=== PATIENT | female | born 1995 | race Caucasian/White ===

== ENCOUNTER 2020-01-17 23:10 | Emergency (ER) | payer OTHER ==
[~2020-01-17] VITALS: Ht 165.1 cm; Wt 113.6 kg
[2020-01-18 00:39] LABS: BASO # 0.1 10^3/uL (0.0-0.2); BASO % 0.5 % (0.0-1.0); EOS # 0.1 10^3/uL (0.0-0.5); EOS % 0.5 % (0.0-3.0); HEMATOCRIT 37.5 % (36.0-47.0); HEMOGLOBIN 11.9 g/dl (12.0-15.5); LYMPH # 1.6 10^3/uL (1.5-5.0); LYMPH % 14.1 % (24.0-44.0); MEAN CORPUSCULAR HGB CONC 31.7 g/dl (32.0-36.5); MEAN CORPUSCULAR VOLUME 88.2 fl (80.0-96.0); MONO # 0.7 10^3/uL (0.0-0.8); MONO % 5.9 % (0.0-5.0); NEUTROPHILS # 8.9 10^3/uL (1.5-8.5); NEUTROPHILS % 78.6 % (36.0-66.0); PLATELET COUNT, AUTOMATED 259 10^3/uL (150-450); RED BLOOD COUNT 4.25 10^6/uL (4.00-5.40); WHITE BLOOD COUNT 11.3 10^3/uL (4.0-10.0)
--- NOTE | 2020-01-18 01:58 | REPVR ---
PROCEDURE INFORMATION: Exam: US First Trimester, Transabdominal Exam date and time: 01/18/2020 1:14 AM Age: 24 years old Clinical indication: Lmp or gestational age (in weeks): 7; Antepartum complications; ; Patient HX: Confirmed iup at Dr suarez. Recently passed a large clot and has heavy bleeding. Roby from sono at [facility] 09/05/2020; Additional info: Confirmed at Dr. Suarez, vaginal bleeding TECHNIQUE: Imaging protocol: Real-time transabdominal obstetrical ultrasound of the maternal pelvis and a first trimester , less than 14 weeks 0 days, with image documentation. COMPARISON: No relevant prior studies available. FINDINGS: MATERNAL: Uterus: No intrauterine gestational sac is seen. Uterus is anteverted measuring 10.7 x 4.1 x 5.2 cm. Mildly thickened endometrium measuring 11.7 mm. No hypervascularity is seen. No obvious retained products of conception are seen. Cervix: Unremarkable. Right adnexa: Right ovary measures 2.8 x 1.3 x 2.5 cm. Normal vascular flow is seen. No evidence of torsion, mass, or cyst. Left adnexa: Left ovary is unremarkable measuring 3.1 x 1.6 x 2.4 cm. Normal vascular flow is seen. No evidence of torsion, mass, or cyst. Intraperitoneal space: No intraperitoneal free fluid. IMPRESSION: No intrauterine gestational sac is seen. Uterus is anteverted measuring 10.7 x 4.1 x 5.2 cm. Mildly thickened endometrium measuring 11.7 mm. No hypervascularity is seen. No obvious retained products of conception are seen. Electronically signed by: Christie Moser On 01/18/2020 01:57:58 AM
[2020-01-18 02:41] VITALS: BP 132/79
== END 2020-01-18 02:43 | disposition home or self-care (01) ==
LOC: M ED 23:10
DX: O20.0 Threatened abortion (principal); Z3A.00 Weeks of gestation of pregnancy not specified

== ENCOUNTER → 2020-01-31 | Outpatient (REF) | payer OTHER | LOC: M LAB REF 16:18 | PROVIDERS: ATTEND Obstetrics & Gynecology | DX: O02.1 Missed abortion (principal) ==

== ENCOUNTER → 2020-06-06 | Outpatient (REF) | payer OTHER ==
[2020-06-06 17:26] LABS: HEMATOCRIT 37.2 % (36.0-47.0); MEAN CORPUSCULAR HEMOGLOBIN 28.7 pg (27.0-33.0); MEAN CORPUSCULAR HGB CONC 32.3 g/dl (32.0-36.5); PLATELET COUNT, AUTOMATED 287 10^3/uL (150-450); RED BLOOD COUNT 4.18 10^6/uL (4.00-5.40); WHITE BLOOD COUNT 8.3 10^3/uL (4.0-10.0)
[2020-06-06 18:20] LABS: HEPATITIS C VIRUS ABY INDEX < 0.0 INDEX (<0.8); HIV 1&2 SCREEN CENTAUR NEGATIVE (NEGATIVE)
[2020-06-06 18:58] LABS: CHLAMYDIA DNA AMPLIFICATION NEGATIVE (NEGATIVE); GC DNA AMPLIFICATION NEGATIVE (NEGATIVE)
== END ==
LOC: M PLALAB 14:03
PROVIDERS: ATTEND Advanced Practice Midwife
DX: Z3A.08 8 weeks gestation of pregnancy (principal)

== ENCOUNTER 2020-06-15 11:38 | Emergency (ER) | payer OTHER ==
[~2020-06-15] VITALS: Ht 149.9 cm; Wt 58.6 kg
[~2020-06-15 11:38] MED LIST: MULTTAB20 PO
[2020-06-15 12:51] LABS: BASO # 0.1 10^3/uL (0.0-0.2); BASO % 0.7 % (0.0-1.0); EOS # 0.1 10^3/uL (0.0-0.5); HEMATOCRIT 35.2 % (36.0-47.0); HEMOGLOBIN 11.4 g/dl (12.0-15.5); LYMPH # 1.7 10^3/uL (1.5-5.0); LYMPH % 20.6 % (24.0-44.0); MEAN CORPUSCULAR HEMOGLOBIN 29.1 pg (27.0-33.0); MEAN CORPUSCULAR HGB CONC 32.4 g/dl (32.0-36.5); MEAN CORPUSCULAR VOLUME 89.8 fl (80.0-96.0); MONO # 0.4 10^3/uL (0.0-0.8); MONO % 5.1 % (2.0-8.0); NEUTROPHILS # 5.8 10^3/uL (1.5-8.5); NEUTROPHILS % 71.9 % (36.0-66.0); PLATELET COUNT, AUTOMATED 261 10^3/uL (150-450); RED BLOOD COUNT 3.92 10^6/uL (4.00-5.40)
--- NOTE | 2020-06-15 13:13 | REP ---
INDICATION: VAGINAL BLEEDING. COMPARISON: None. TECHNIQUE: Multiple sonographic images of the gravid uterus. FINDINGS: There is an intrauterine gestational sac with a pole. The heart rate is 153 beats per minute. The pole crown-rump length is 3.7 cm. This corresponds to a gestational age of 10 weeks 4 days with an CASEY of 01/07/2021. There is a subchorionic hematoma along the right margin of the gestational sac measuring 2.7 x 1.0 x 3.9 cm. Limited images of the right and left ovaries are unremarkable. IMPRESSION: There is a viable intrauterine gestation as described. There is a subchorionic hematoma lung the right lateral margin of the gestational sac. <Electronically signed by Rikki Jose > 06/15/20 [id number]
[2020-06-15 13:43] LABS: BLOOD UREA NITROGEN 4 MG/DL (7-18); CALCIUM LEVEL 9.1 MG/DL (8.5-10.1); CARBON DIOXIDE LEVEL 24 MEQ/L (21-32); CHLORIDE LEVEL 107 MEQ/L (98-107); CREATININE FOR GFR 0.49 MG/DL (0.55-1.30); GLOMERULAR FILTRATION RATE > 60.0 (>60); GLUCOSE, FASTING 77 MG/DL (70-100); HCG, SERUM QUANTITATIVE 99295 MIU/ML; POTASSIUM SERUM 4.6 MEQ/L (3.5-5.1); SODIUM LEVEL 137 MEQ/L (136-145)
[2020-06-15 14:57] VITALS: BP 118/67
== END 2020-06-15 15:02 | disposition home or self-care (01) ==
LOC: M ED 11:38
DX: O20.8 Other hemorrhage in early pregnancy (principal); Z32.01 Encounter for pregnancy test, result positive; O26.891 Other specified pregnancy related conditions, first trimester; Z3A.10 10 weeks gestation of pregnancy; Z87.59 Personal history of other complications of pregnancy, childbirth and the puerperium

== ENCOUNTER → 2020-07-04 | Outpatient (REF) | payer OTHER | LOC: M SFHCWAGY 16:56 | PROVIDERS: ATTEND Advanced Practice Midwife | DX: Z12.4 Encounter for screening for malignant neoplasm of cervix (principal) ==

== ENCOUNTER 2020-08-25 16:59 | Outpatient (CLI) | payer OTHER ==
[~2020-08-25] VITALS: Ht 149.9 cm; Wt 64.0 kg
[2020-08-25 17:22] VITALS: BP 110/61
[2020-08-25] MEDS ORDERED: BUSP10TA PO (17:25)
[2020-08-25 19:11] VITALS: BP 100/62
[2020-08-25] MEDS ORDERED: RA C PV (19:21)
[2020-08-25] MEDS ORDERED: NITR-67 PO (19:21)
[2020-08-25] MEDS ORDERED: NITROFURANTOIN (MACROBID) 100 MG CAP PO ONE (19:25)
--- NOTE | 2020-08-25 19:31 | IPNPDOC ---
Text Note Date of Service The patient was seen on 08/25/20. NOTE Triage Note Lynnette is a 25yo with SIUP at 20w2d presenting for vaginal spotting, cramping and occasional lightheadedness. States she is unsure how much water she drinks- she "does not measure it". When asked if she drinks 8 glasses a day at the least, she states she does not know. No vaginal itching or abnormal discharge, No burning with urination or increased frequency/urgency. Feels occasional movement. No LOF. I did not see the urine specimen she gave, but per RN it "looked like maple syrup". Vitals wnl, afebrile Gen: WDWN, resting comfortably in bed Abdomen: soft, gravid, NTTP Extremities: no edema of BLE SSE: white thick clumpy discharge noted in vaginal vault, swab obtained, cervix visually cl/th/high [place] 150's [place]: NO ctx Labs: Urinalysis: spec grav 1.010, 37 WBC, 3+ LE, RBC 8, 2+ bacteria, 30 squam, small mucous WHIT/WP: no e/o trichomonas or clue cells. There are abundant budding yeast and hyphae. Assessment: Lynnette is a 25yo with SIUP at 20w2d with posible UTI based on dirty UA and vulvovaginal candidiasis based on presence of budding yeast and hyphae on WHIT/WP. Reassuring status. Vitals wnl, otherwise benign exam. Plan: -Discharge to home -Rx macrobid 100mg BID x7 days for possible UTI and clotrimazole vaginal cream x7d for vulvovaginal candidiasis. First dose macrobid here since pharmacy closed, pt to [facility] operator meds first thing in am -patient strongly encouraged to increase hydration -discussed return precautions -keep next routine OB appt Janine Langford MD VSJaleel I+O VSJaleel I+O Vital Signs Date Time Temp Pulse Resp B/P (MAP) Pulse Ox O2 Delivery O2 Flow Rate FiO2 08/25/20 17:22 99.0 79 18 110/61 (77) Janine Langford MD Aug 25, 2020 19:31
== END 2020-08-25 19:30 | disposition home or self-care (01) ==
LOC: M LDO 16:59
PROVIDERS: ATTEND Obstetrics & Gynecology
DX: O26.852 Spotting complicating pregnancy, second trimester (principal); Z3A.20 20 weeks gestation of pregnancy; O23.592 Infection of other part of genital tract in pregnancy, second trimester; B37.9 Candidiasis, unspecified

== ENCOUNTER → 2020-08-27 | Outpatient (CLI) | payer OTHER ==
[~2020-08-27] MED LIST changes: +BUSP10TA PO; +NITR-67 PO; +RA C PV
--- NOTE | 2020-08-28 03:45 | REP ---
INDICATION: ANATOMY COMPARISON: 06/15/2020 TECHNIQUE: Transabdominal obstetrical ultrasound with color Doppler evaluation. FINDINGS: Examination demonstrates a single live intrauterine in cephalic presentation. motion is identified by technologist. Placenta is noted posterior and grade 1 without evidence for placenta previa or abruption. Amniotic fluid volume is normal. Cervix measures 4.1 cm in length and appears closed.. Selected gestational age: 20 weeks 4 days with CASEY 01/10/2021. Gestational age by current measurements 21 weeks 1 day with CASEY 01/06/2021. FHR equals 155 beats per minute. Estimated weight 385 grams (62ndpercentile). Anatomical assessment demonstrates normal structures including cranium, cavum, cerebellum/posterior fossa, lungs, diaphragm, stomach, cord insertion/three-vessel cord, kidneys/bladder, spine, and extremities. Small left choroid plexus cysts noted. Limited evaluation of the facial features and heart/ventricular outflow tracts due to positioning/motion. IMPRESSION: 1. Single live intrauterine in cephalic presentation demonstrating appropriate estimated weight. 2. Anatomical limitations as noted above warrant re-evaluation and follow-up. <Electronically signed by Johann Tanner > 08/28/20 [id number]
== END ==
LOC: M WHC 14:29
PROVIDERS: ATTEND Obstetrics & Gynecology
DX: Z36.89 Encounter for other specified antenatal screening (principal); Z3A.20 20 weeks gestation of pregnancy; O28.5 Abnormal chromosomal and genetic finding on antenatal screening of mother

== ENCOUNTER → 2020-10-08 | Outpatient (REF) | payer OTHER ==
[~2020-10-08] MED LIST changes: +CLOT45CR8 PV; -RA C PV
== END ==
LOC: M PLALAB 13:54
PROVIDERS: ATTEND Obstetrics & Gynecology
DX: Z36.89 Encounter for other specified antenatal screening (principal); Z3A.26 26 weeks gestation of pregnancy; Z53.9 Procedure and treatment not carried out, unspecified reason

== ENCOUNTER → 2020-10-17 | Outpatient (CLI) | payer OTHER ==
[2020-10-17 13:09] LABS: HEMATOCRIT 30.1 % (36.0-47.0); HEMOGLOBIN 9.4 g/dl (12.0-15.5); MEAN CORPUSCULAR HEMOGLOBIN 27.6 pg (27.0-33.0); MEAN CORPUSCULAR HGB CONC 31.2 g/dl (32.0-36.5); MEAN CORPUSCULAR VOLUME 88.5 fl (80.0-96.0); PLATELET COUNT, AUTOMATED 230 10^3/uL (150-450); WHITE BLOOD COUNT 9.4 10^3/uL (4.0-10.0)
== END ==
LOC: M PLALAB 09:39
PROVIDERS: ATTEND Obstetrics & Gynecology
DX: Z36.89 Encounter for other specified antenatal screening (principal); Z3A.26 26 weeks gestation of pregnancy

== ENCOUNTER → 2020-10-21 | Outpatient (CLI) | payer OTHER ==
[~2020-10-21] MED LIST changes: +FERR325T3 PO; +MUCI60TA7 PO; +PANT20TA6 PO; +QC A650T3 PO; +SERT50TA29 PO; +ZOLO50TA PO
== END ==
LOC: M WHC 15:03
PROVIDERS: ATTEND Obstetrics & Gynecology
DX: Z34.82 Encounter for supervision of other normal pregnancy, second trimester (principal); Z3A.30 30 weeks gestation of pregnancy

== ENCOUNTER → 2020-10-23 | Outpatient (CLI) | payer OTHER ==
[~2020-10-23] MED LIST changes: -FERR325T3 PO; -MUCI60TA7 PO; -PANT20TA6 PO; -QC A650T3 PO; -SERT50TA29 PO; -ZOLO50TA PO
== END ==
LOC: M WHC 09:13
PROVIDERS: ATTEND Obstetrics & Gynecology
DX: Z36.89 Encounter for other specified antenatal screening (principal); Z3A.28 28 weeks gestation of pregnancy; Z53.9 Procedure and treatment not carried out, unspecified reason

== ENCOUNTER → 2020-11-13 | Outpatient (CLI) | payer OTHER ==
--- NOTE | 2020-11-14 08:46 | REP ---
INDICATION: F/U ANATOMY/CASEY COMPARISON: 10/21/2020 TECHNIQUE: Transabdominal obstetrical ultrasound with color Doppler evaluation. FINDINGS: Examination demonstrates a single live intrauterine in cephalic presentation. motion is identified by technologist. Placenta is noted posterior and grade 1 without evidence for placenta previa or abruption. Amniotic fluid volume is normal. Cervix measures 4.0 cm in length and appears closed.. Selected gestational age: 31 weeks 5 days with CASEY 01/10/2021. Gestational age by current measurements 33 weeks 3 days with CASEY 12/29/2020. FHR equals 134 beats per minute. Estimated weight 2174 grams (87thpercentile). Anatomical assessment demonstrates normal structures including nose/lips, and four-chamber heart/ventricular outflow tracts. IMPRESSION: Single live advanced gestation in cephalic presentation demonstrating appropriate estimated weight. In conjunction with prior examination anatomical assessment is complete and normal. <Electronically signed by Johann Tanner > 11/14/20 [id number]
== END ==
LOC: M WHC 13:27
PROVIDERS: ATTEND Advanced Practice Midwife
DX: Z36.2 Encounter for other antenatal screening follow-up (principal); Z3A.31 31 weeks gestation of pregnancy

== ENCOUNTER → 2020-12-19 | Outpatient (REF) | payer OTHER | LOC: M SFHCWAGY 16:50 | PROVIDERS: ATTEND Advanced Practice Midwife | DX: Z34.83 Encounter for supervision of other normal pregnancy, third trimester (principal); Z36.85 Encounter for antenatal screening for Streptococcus B ==

== ENCOUNTER 2021-01-03 13:16 | Inpatient (IN) | payer OTHER ==
[~2021-01-03 13:16] MED LIST changes: +FERR325T3 PO; +PANT20TA6 PO; +QC A650T3 PO
[2021-01-03] MEDS ORDERED: ALBUTEROL 90 MCG/ACT 8GM HFA INHALER INH PRN (13:30)
[2021-01-03] MEDS ORDERED: hydrOXYzine 25 MG TAB PO SCH (13:30)
[2021-01-03] MEDS ORDERED: MOM 30ML SUSPENSION UDC PO PRN (13:30)
[2021-01-03] MEDS ORDERED: ACETAMINOPHEN TAB 650MG DOSE (2X325MG) PO PRN (13:30)
[2021-01-03] MEDS ORDERED: MAALOX 30 ML SUSP *UDC PO PRN (13:30)
--- OUTSIDE RECORDS SUMMARY | 2021-01-03 20:05 | CCD ---
Author Author [facility] Organization [facility] Address Unknown Phone Unavailable Care Team Providers Care Sole Inker Name Role Phone Lili GARCIA MD Unavailable Unavailable Lili GARCIA MD Unavailable Unavailable Lili GARCIA MD Unavailable Unavailable Lili GARCIA MD Unavailable Unavailable Lili GARCIA MD Unavailable Unavailable Lili GARCIA MD Unavailable Unavailable Lili GARCIA MD Unavailable Unavailable Lili GARCIA MD Unavailable Unavailable Lili GARCIA MD Unavailable Unavailable Lili GARCIA MD Unavailable Unavailable Lili GARCIA MD Unavailable Unavailable Lili GARCIA MD Unavailable Unavailable Lili GARCIA MD Unavailable Unavailable Lili GARCIA MD Unavailable Unavailable Lili GARCIA MD Unavailable Unavailable Lili GARCIA MD Unavailable Unavailable Lili GARCIA MD Unavailable Unavailable Lili GARCIA MD Unavailable Unavailable Lili GARCIA MD Unavailable Unavailable Lili GARCIA MD Unavailable Unavailable Lili GARCIA MD Unavailable Unavailable Lili GARCIA MD Unavailable Unavailable Lili GARCIA MD Unavailable Unavailable Lili GARCIA MD Unavailable Unavailable BUMBANAC, A STAR CHOIR ACCOMPANIST Unavailable Unavailable BUMBANAC, A STAR CHOIR ACCOMPANIST Unavailable Unavailable BUMBANAC, A STAR CHOIR ACCOMPANIST Unavailable Unavailable BUMBANAC, A STAR CHOIR ACCOMPANIST Unavailable Unavailable BUMBANAC, A STAR CHOIR ACCOMPANIST Unavailable Unavailable BUMBANAC, A STAR CHOIR ACCOMPANIST Unavailable Unavailable BUMBANAC, A STAR CHOIR ACCOMPANIST Unavailable Unavailable BUMBANAC, A STAR CHOIR ACCOMPANIST Unavailable Unavailable BUMBANAC, A STAR CHOIR ACCOMPANIST Unavailable Unavailable BUMBANAC, A STAR CHOIR ACCOMPANIST Unavailable Unavailable BUMBANAC, A STAR CHOIR ACCOMPANIST Unavailable Unavailable BUMBANAC, A STAR CHOIR ACCOMPANIST Unavailable Unavailable BUMBANAC, A STAR CHOIR ACCOMPANIST Unavailable Unavailable BUMBANAC, A STAR CHOIR ACCOMPANIST Unavailable Unavailable BUMBANAC, A STAR CHOIR ACCOMPANIST Unavailable Unavailable BUMBANAC, A STAR CHOIR ACCOMPANIST Unavailable Unavailable BUMBANAC, A STAR CHOIR ACCOMPANIST Unavailable Unavailable BUMBANAC, A STAR CHOIR ACCOMPANIST Unavailable Unavailable BUMBANAC, A STAR CHOIR ACCOMPANIST Unavailable Unavailable BUMBANAC, A STAR CHOIR ACCOMPANIST Unavailable Unavailable BUMBANAC, A STAR CHOIR ACCOMPANIST Unavailable Unavailable BUMBANAC, A STAR CHOIR ACCOMPANIST Unavailable Unavailable BUMBANAC, A STAR CHOIR ACCOMPANIST Unavailable Unavailable BUMBANAC, A STAR CHOIR ACCOMPANIST Unavailable Unavailable BUMBANAC, A STAR CHOIR ACCOMPANIST Unavailable Unavailable BUMBANAC, A STAR CHOIR ACCOMPANIST Unavailable Unavailable BUMBANAC, A STAR CHOIR ACCOMPANIST Unavailable Unavailable BUMBANAC, A STAR CHOIR ACCOMPANIST Unavailable Unavailable BUMBANAC, A STAR CHOIR ACCOMPANIST Unavailable Unavailable BUMBANAC, A STAR CHOIR ACCOMPANIST Unavailable Unavailable BUMBANAC, A STAR CHOIR ACCOMPANIST Unavailable Unavailable Re-disclosure Warning The records that you are about to access may contain information from federally-assisted alcohol or drug abuse programs. If such information is present, then the following federally mandated warning applies: This information has been disclosed to you from records protected by federal confidentiality rules (42 CFR part 2). The federal rules prohibit you from making any further disclosure of this information unless further disclosure is expressly permitted by the written consent of the person to whom it pertains or as otherwise permitted by 42 CFR part 2. A general authorization for the release of medical or other information is NOT sufficient for this purpose. The Federal rules restrict any use of the information to criminally investigate or prosecute any alcohol or drug abuse patient.The records that you are about to access may contain highly sensitive health information, the redisclosure of which is protected by Article 27-F of the [place] State Public Health law. If you continue you may have access to information: Regarding HIV / AIDS; Provided by facilities licensed or operated by the [facility] of Mental Health; or Provided by the [facility] for People With Developmental Disabilities. If such information is present, then the following [facility] mandated warning applies: This information has been disclosed to you from confidential records which are protected by state law. State law prohibits you from making any further disclosure of this information without the specific written consent of the person to whom it pertains, or as otherwise permitted by law. Any unauthorized further disclosure in violation of state law may result in a fine or fci sentence or both. A general authorization for the release of medical or other information is NOT sufficient authorization for further disc losure. Encounters Encounter Providers Location Date Indications Data Source(s ) ( ESTOB) [facility] OB [address] [place] [address] 12/19/2020 12:00:00 AM EDT eCW1 ([facility]) ( ESTOB) [facility] OB [address] [place] [address] 12/09/2020 12:00:00 AM EDT eCW1 ([facility]) Unknown [address] [facility] [address] 11/21/2020 12:00:00 AM EDT [facility]CW[facility] ( ESTOB) [facility] Est OB [address] [place] [address] 11/19/2020 12:00:00 AM EDT eCW1 ([facility]) ( ESTOB) [facility] Est OB [address] [place] [address] 11/07/2020 12:00:00 AM EDT eCW1 ([facility] Unknown [address] [facility] [address] 10/23/2020 12:00:00 AM EDT eCW1 ([facility]) Unknown [address] [facility] [address] 10/17/2020 12:00:00 AM EDT eCW1 ([facility]) ( ESTOB) [facility] OB [address] [place] [address] 10/08/2020 12:00:00 AM EDT eCW1 ([facility]) Unknown [address] [facility] [address] 10/01/2020 12:00:00 AM EDT eCW1 ([facility]) Outpatient Attender: EMILY GARCIA MD 09/27 12:42:26 PM EDT - 09/27/2020 12:50:34 PM EDT [facility] ([facility] ) Outpatient 09/25/2020 10:08:32 AM EDT - 021 11:05:43 AM EDT [facility] ([facility]) (WC ESTOB) [facility] Est OB [address] [place] [address] 08/29/2020 12:00:00 AM EDT eCW1 ([facility]) ( ESTOB) [facility] Est OB [address] [place] [address] 08/01/2020 12:00:00 AM EDT eCW1 ([facility]) ( ESTOB) [facility] Est OB [address] [place] [address] 07/04/2020 12:00:00 AM EDT eCW1 ([facility]) ( NEWOB) [facility] New OB Visit [address] [place] [address] 06/06/2020 12:00:00 AM EDT eCW1 ([facility]) Outpatient Attender: MADONNA CHAIREZ NP 03/04 05:28:00 PM EST - 03/04/2020 05:28:00 PM EST [facility] Immunizations Vaccine Date Status Description Data Source(s) Tdap 11/07/2020 03:01:00 PM EDT completed e CW1 ([facility]) Tdap 11/07/2020 03:01:00 PM EDT completed e CW1 ([facility]) Tdap 11/07/2020 03:01:00 PM EDT completed e CW1 ([facility]) Tdap 11/07/2020 03:01:00 PM EDT completed e CW1 ([facility]) Tdap 11/07/2020 03:01:00 PM EDT completed e CW1 ([facility]) Medications Medication Brand Name Start Date Product Form Dose Route Admi nistrative Instructions Pharmacy Instructions Status Indications Reaction Description Data Source(s) pantoprazole 20 MG Delayed Release Oral Tablet Pantopr azole Sodium 20 MG Pantoprazole Sodium 20 MG 12/25/2020 12:00:00 AM EDT 1.0 {tablet} active Pantoprazole Sodium 20 MG eCW1 ( [facility]) Iron (Ferrous Sulfate) 325 (65 Fe) MG Iron (Ferrous Sulfate) 325 (65 Fe) MG 12/25/2020 12:00:00 AM EDT 1.0 {tablet} active Iron (Ferrous Sulfate) 325 (65 Fe) MG eCW1 ([facility]) 20 mg 11/20/2020 12:00:00 AM EDT tablet,delayed release (DR/EC) 30 TAKE ONE TABLET BY MOUTH EVERY DAY TAKE ONE TABLET BY MOUTH EVERY DAY SOLD: 11/26/2020 [facility] pantoprazole 20 MG Delayed Release Oral Tablet Pantopr azole Sodium 20 MG Pantoprazole Sodium 20 MG 11/19/2020 12:00:00 AM EDT 1.0 {tablet} active Pantoprazole Sodium 20 MG eCW1 ( [facility]) pantoprazole 20 MG Delayed Release Oral Tablet Pantopr azole Sodium 20 MG Pantoprazole Sodium 20 MG 11/19/2020 12:00:00 AM EDT 1.0 {tablet} active Pantoprazole Sodium 20 MG eCW1 ( [facility]) pantoprazole 20 MG Delayed Release Oral Tablet Pantopr azole Sodium 20 MG Pantoprazole Sodium 20 MG 11/19/2020 12:00:00 AM EDT 1.0 {tablet} active Pantoprazole Sodium 20 MG eCW1 ( [facility]) pantoprazole 20 MG Delayed Release Oral Tablet Pantopr azole Sodium 20 MG Pantoprazole Sodium 20 MG 11/19/2020 12:00:00 AM EDT 1.0 {tablet} active Pantoprazole Sodium 20 MG eCW1 ( [facility]) 325 mg (65 mg iron) 10/18/2020 12:00:00 AM EDT tablet 30 TAKE ONE TABLET BY MOUTH EVERY DAY TAKE ONE TABLET BY MOUTH EVERY DAY SOLD: 10/25/2020 [facility] ferrous sulfate 325 MG Oral Tablet Ferrous Sulfate 325 (65 Fe) MG Ferrous Sulfate 325 (65 Fe) MG 10/17/2020 12:00:00 AM EDT 1.0 {tablet} active Ferrous Sulfate 325 (65 Fe) MG eCW1 ([facility]) ferrous sulfate 325 MG Oral Tablet Ferrous Sulfate 325 (65 Fe) MG Ferrous Sulfate 325 (65 Fe) MG 10/17/2020 12:00:00 AM EDT 1.0 {tablet} active Ferrous Sulfate 325 (65 Fe) MG eCW1 ([facility]) ferrous sulfate 325 MG Oral Tablet Ferrous Sulfate 325 (65 Fe) MG Ferrous Sulfate 325 (65 Fe) MG 10/17/2020 12:00:00 AM EDT 1.0 {tablet} active Ferrous Sulfate 325 (65 Fe) MG eCW1 ([facility]) ferrous sulfate 325 MG Oral Tablet Ferrous Sulfate 325 (65 Fe) MG Ferrous Sulfate 325 (65 Fe) MG 10/17/2020 12:00:00 AM EDT 1.0 {tablet} active Ferrous Sulfate 325 (65 Fe) MG eCW1 ([facility]) ferrous sulfate 325 MG Oral Tablet Ferrous Sulfate 325 (65 Fe) MG Ferrous Sulfate 325 (65 Fe) MG 10/17/2020 12:00:00 AM EDT 1.0 {tablet} active Ferrous Sulfate 325 (65 Fe) MG eCW1 ([facility]) ferrous sulfate 325 MG Oral Tablet Ferrous Sulfate 325 (65 Fe) MG Ferrous Sulfate 325 (65 Fe) MG 10/17/2020 12:00:00 AM EDT 1.0 {tablet} active Ferrous Sulfate 325 (65 Fe) MG eCW1 ([facility]) ferrous sulfate 325 MG Oral Tablet Ferrous Sulfate 325 (65 Fe) MG Ferrous Sulfate 325 (65 Fe) MG 10/17/2020 12:00:00 AM EDT 1.0 {tablet} active Ferrous Sulfate 325 (65 Fe) MG eCW1 ([facility]) 1 % 08/27/2020 12:00:00 AM EDT cream 45 INSERT 1 APPLICATORFUL VAGINALLY IN THE EVENING DIRECTED INSERT 1 APPLICATORFUL VAGINALLY IN THE EVENING DIRECTED SOLD: 08/28/2020 [facility] NITROFURANTOIN, MACROCRYSTALS 25 MG / Ni trofurantoin, Monohydrate 75 MG Oral Capsule 100 mg NITROFURANTOIN MONOHYD/M-CRYST 08/26/2020 12:00:00 AM EDT ca psule 14 TAKE ONE CAPSULE BY MOUTH TWICE A DAY TAKE ONE CAPSULE BY MOUTH TWICE A DAY SOLD: 08/26/2020 [facility] buspirone hydrochloride 10 MG Oral Tablet BUSPIRONE HCL 03/30/2020 12:00:00 AM EST tablet 60 TAKE ONE TABLET BY MOUTH TWI CE A DAY TAKE ONE TABLET BY MOUTH TWICE A DAY SOLD: 03/31/2020 [facility] 50 mg 03/30/2020 12:00:00 AM EST tablet 30 TAKE ONE TABLET BY MOUTH AT BEDTIME TAKE ONE TABLET BY MOUTH AT BEDTIME SOLD: 03/31/2020 [facility] 10 mg 03/30/2020 12:00:00 AM EST capsule 30 TAKE ONE CAPSULE BY MOUTH EVERY DAY TAKE ONE CAPSULE BY MOUTH EVERY DAY SOLD: 03/31/2020 [facility] Insurance Providers Payer name Policy type / Coverage type Policy ID Covered libertarian ID Covered libertarian's relationship to harris Policy Harris Plan Information [facility] [id number] Employee [id number] [facility] [id number] SP [id number] [facility] [id number] SP [id number] [facility] O [id number] O [id number] MEDICAID M [id number] S [id number] MEDICAID M UNAVAILABLE S UNAVAILA BLE RHC [facility] [place] [id number] Problems, Conditions, and Diagnoses Code Display Name Description Problem Type Effective Dates Data Source(s) O99.013 Anemia complicating , third tri mester Anemia complicating in third trimester Problem 12/18/2020 12:00:00 AM EDT eCW1 ([facility]) K21.9 [id number] Acid reflux Problem 11/19/2020 12:00:00 AM E DT eCW1 ([facility]) O99.019 Anemia in mother complicating , childbirth AND/OR puerperium Anemia complicating , unspecified trimester Problem 0 10/17/2020 12:00:00 AM EDT eCW1 ([facility]) Z34.80 care Supervision of other normal P gómez[place] 06/06/2020 12:00:00 AM EDT eCW1 ([facility]) Surgeries/Procedures No Information Results ID Date Data Source GROUP B STREP CULTURE 12/19/2020 12:00:00 AM EDT eCW1 ([facility]) Name Value Range Interpretation Code Description Data Melissa rce(s) Supporting Document(s) GROUP B STREP CULTURE eCW1 ([facility]) ID Date Data Source PAP REQUEST FOR SERVICE 07/04/2020 12:00:00 AM EDT eCW1 ([facility]) Name Value Range Interpretation Code Description Data Melissa rce(s) Supporting Document(s) PAP REQUEST FOR SERVICE eCW1 ( [facility]) ID Date Data Source URINE CULTURE 07/04/2020 12:00:00 AM EDT eCW1 ([facility] Name Value Range Interpretation Code Description Data Melissa rce(s) Supporting Document(s) URINE CULTURE eCW1 ([facility]) ID Date Data Source HBSAG 06/06/2020 12:00:00 AM EDT eCW1 ([facility]) Name Value Range Interpretation Code Description Data Melissa rce(s) Supporting Document(s) NEGATIVE NEGATIVE eCW1 ([facility]) ID Date Data Source HEPATITIS C ANTIBODY INDEX 06/06/2020 12:00:00 AM EDT eCW1 ( [facility]) Name Value Range Interpretation Code Description Data Melissa rce(s) Supporting Document(s) < 0.0 <0.8 W ([facility]) ID Date Data Source RUBELLA IMMUNE STATUS IgG 06/06/2020 12:00:00 AM EDT eCW1 ([facility]) Name Value Range Interpretation Code Description Data Melissa rce(s) Supporting Document(s) IMMUNE IMMUNE eCW1 ([facility]) ID Date Data Source SYPHILIS ANTIBODY (RPR SCREEN) 06/06/2020 12:00:00 AM EDT eC W1 ([facility]) Name Value Range Interpretation Code Description Data Melissa rce(s) Supporting Document(s) NONREACTIVE NONREACTIVE eCW1 ([facility]) ID Date Data Source [id number] 06/06/2020 12:00:00 AM EDT eCW1 ([facility]) Name Value Range Interpretation Code Description Data Melissa rce(s) Supporting Document(s) eCW1 ([facility]) ID Date Data Source CHLAMYDIA & GC DNA AMPLIFICAT 06/06/2020 12:00:00 AM EDT eCW 1 ([facility]) Name Value Range Interpretation Code Description Data Melissa rce(s) Supporting Document(s) Chlamydia trachomatis rRNA [Presence] in Unspecified specimen by Probe and target amplification method NEGATIVE NEGATIVE eCW1 ([facility]) ID Date Data Source CBC - Complete Blood Count 06/06/2020 12:00:00 AM EDT eCW1 ( [facility]) Name Value Range Interpretation Code Description Data Melissa rce(s) Supporting Document(s) 8.3 4.0-10.0 eCW1 ([facility]) 37.2 36.0-47.0 eCW1 ([facility]) 12.0 12.0-15.5 eCW1 ([facility]) 4.18 4.00-5.40 eCW1 ([facility]) 89.0 80.0-96.0 eCW1 ([facility]) 32.3 32.0-36.5 eCW1 ([facility]) 14.3 11.5-14.5 eCW1 ([facility]) 287 150-450 eCW1 ([facility]) 28.7 27.0-33.0 eCW1 ([facility]) ID Date Data Source Type and Screen Prenatal1 06/06/2020 12:00:00 AM EDT eCW1 ([facility]) Name Value Range Interpretation Code Description Data Melissa rce(s) Supporting Document(s) NEGATIVE eCW1 ([facility]) ID Date Data Source [id number] 03/04/2020 06:25:00 PM EST [facility] Name Value Range Interpretation Code Description Data Melissa rce(s) Supporting Document(s) SARS coronavirus 2 RNA [facility] This lab was ordered by [facility] maria and reported by [facility]. ID Date Data Source [id number] 03/07/2020 07:39:00 AM EST [facility] Name Value Range Interpretation Code Description Data Melissa rce(s) Supporting Document(s) SARS-CoV-2, ALONZO Not Detected Not Detected [facility] This nucleic acid amplification test was developed and its performancecharacteristics determined by [facility]. Nucleic acidamplification tests include PCR and TMA. This test has not been FDAcleared or approved. This test has been authorized by FDA under anEmergency Use Authorization (EUA). This test is only authorized forthe duration of time the declaration that circumstances existjustifying the authorization of the emergency use of in vitrodiagnostic tests for detection of SARS-CoV-2 virus and/or diagnosisof COVID-19 infection under section 564(b)(1) of the Act, 21 U.S.C.360bbb-3(b) (1), unless the authorization is terminated or revokedsooner.When diagnostic testing is negative, the possibility of a falsenegative result should be considered in the context of a patient'srecent exposures and the presence of clinical signs and symptomsconsistent with COVID- 19. An individual without symptoms of COVID-19and who is not shedding SARS-CoV-2 virus would expect to have anegative (not detected) result in this assay. ID Date Data Source [id number] 03/04/2020 06:25:00 PM EST [facility] ([facility]) Name Value Range Interpretation Code Description Data Melissa rce(s) Supporting Document(s) Influenza virus B RNA [Presence] in Unsp ecified specimen by Probe and target amplification method Laboratory test result [facility] ([facility]) Influenza virus A RNA [Presence] in Unsp ecified specimen by Probe and target amplification method Laboratory test result [facility] ([facility]) ID Date Data Source [id number] 03/04/2020 06:25:00 PM EST [facility] ([facility]) Name Value Range Interpretation Code Description Data Melissa rce(s) Supporting Document(s) Laboratory test finding (navigational concept) Laboratory test result [facility] ([facility]) ID Date Data Source [id number] 01/09/2020 12:00:00 AM EDT [facility] o[facility]y Imaging April Hancock Cnm Patient Name: BUSHRA ANTOINE [facility] Date of : 1995[place] [address] Date of Exam: 01/09/2020#: Fax: [phone] EXAM: US OB < 14 WKS, SINGLE FETUSCLINICAL INFORMATION: Supervision of normal .Transvesical and transvaginal imaging was obtained.LMP: 11/01/2019GA by LMP: 9 weeks 6 days, CASEY: 08/07/2020GA by today's ultrasound: 5 weeks 5 days, CASEY: 09/05/2020Gravida 1, Para 0Sac: 1.5 cm = 5 weeks 5 days, <05%Amniotic fluid volume is normal.Yolk Sac IS NOT seen. Pole IS NOT seen.Right ovary: 3.1 x 2.3 x 2.1 cm, RI: 0.46Left ovary: 2.9 x 1.9 x 1.2 cm, RI: 0.49The uterus is retroverted and there is an anterior myometrial fibroid 0.9 x0.7 cm.Followup is recommended.Accredited by the [employer] in Obstetrical Ultrasound.JESSICA Loo/Norberto you for referring ROSA ANTOINE to our office. Electronically Signed - MOE LUX DO 01/10/20 14:35 Name Value Range Interpretation Code Description Data Melissa rce(s) Supporting Document(s) ID Date Data Source [id number] 01/09/2020 12:00:00 AM EDT [facility] Imaging April Hancock Cnm Patient Name: ROAS ANTOINE622 [facility] Date of : 1995[place] [address] Date of Exam: 01/09/2020#: Fax: [phone] EXAM: US OB < 14 WKS, SINGLE FETUSCLINICAL INFORMATION: Supervision of normal .Transvesical and transvaginal imaging was obtained.LMP: 11/01/2019GA by LMP: 9 weeks 6 days, CASEY: 08/07/2020GA by today's ultrasound: 5 weeks 5 days, CASEY: 09/05/2020Gravida 1, Para 0Sac: 1.5 cm = 5 weeks 5 days, <05%Amniotic fluid volume is normal.Yolk Sac IS NOT seen. Pole IS NOT seen.Right ovary: 3.1 x 2.3 x 2.1 cm, RI: 0.46Left ovary: 2.9 x 1.9 x 1.2 cm, RI: 0.49The uterus is retroverted and there is an anterior myometrial fibroid 0.9 x0.7 cm.Followup is recommended.Accredited by the [place] in Obstetrical Ultrasound.JESSICA Loo/Norberto ledezma for referring ROSA ANTOINE to our office. Electronically Signed - MOE LUX DO 01/10/20 14:35 Name Value Range Interpretation Code Description Data Melissa rce(s) Supporting Document(s) Procedure Social History Code Duration Value Status Description Data Source(s ) Smoking 12/26/2020 12:00:00 AM EDT Never Smoker completed Never S moker eCW1 ([facility]) Smoking 12/16/2020 12:00:00 AM EDT Never Smoker completed Never S moker eCW1 ([facility]) Smoking 12/16/2020 12:00:00 AM EDT Never Smoker completed Never S moker eCW1 ([facility]) Smoking 11/12/2020 12:00:00 AM EDT Never Smoker completed Never S moker eCW1 ([facility]) Smoking 11/04/2020 12:00:00 AM EDT Never Smoker completed Never S moker eCW1 ([facility]) Smoking 10/08/2020 12:00:00 AM EDT Never Smoker completed Never S moker eCW1 ([facility]) Smoking 10/08/2020 12:00:00 AM EDT Never Smoker completed Never S moker eCW1 ([facility]) Smoking 10/08/2020 12:00:00 AM EDT Never Smoker completed Never S moker eCW1 ([facility]) Smoking 08/29/2020 12:00:00 AM EDT Never Smoker completed Never S moker eCW1 ([facility]) Smoking 08/29/2020 12:00:00 AM EDT Never Smoker completed Never S moker eCW1 ([facility]) Smoking 08/01/2020 12:00:00 AM EDT Never Smoker completed Never S moker eCW1 ([facility]) Smoking 07/04/2020 12:00:00 AM EDT Never Smoker completed Never S moker eCW1 ([facility]) Smoking 06/06/2020 12:00:00 AM EDT Never Smoker completed Never S moker eCW1 ([facility]) Vital Signs ID Date Data Source UNK Name Value Range Interpretation Code Description Data Source(s) Body weight 178 [lb_av] 178 [lb_av] eCW1 ([facility]) Body weight 80.74 kg 80.74 kg eCW1 ([facility] Body height 59.6 [in_i] 59.6 [in_i] eCW1 ([facility]) Body mass index (BMI) [Ratio] 35.231 kg/m2 35.2 31 kg/m2 eCW1 ([facility]) Systolic blood pressure 120 mm[Hg] 120 mm[Hg] e CW1 ([facility]) Diastolic blood pressure 70 mm[Hg] 70 mm[Hg] eCW1 ([facility]) Body weight 177.6 [lb_av] 177.6 [lb_av] eCW1 ([facility]) Body weight 80.56 kg 80.56 kg eCW1 ([facility] Body height 59.6 [in_i] 59.6 [in_i] eCW1 ([facility]) Body mass index (BMI) [Ratio] 35.152 kg/m2 35.1 52 kg/m2 eCW1 ([facility]) Systolic blood pressure 122 mm[Hg] 122 mm[Hg] e CW1 ([facility]) Diastolic blood pressure 82 mm[Hg] 82 mm[Hg] eCW1 ([facility]) Body weight 169.2 [lb_av] 169.2 [lb_av] eCW1 ([facility]) Body weight 76.75 kg 76.75 kg eCW1 ([facility] Body height 59.6 [in_i] 59.6 [in_i] eCW1 ([facility]) Body mass index (BMI) [Ratio] 33.49 kg/m2 33.49 kg/m2 eCW1 ([facility]) Systolic blood pressure 124 mm[Hg] 124 mm[Hg] e CW1 ([facility]) Diastolic blood pressure 70 mm[Hg] 70 mm[Hg] eCW1 ([facility]) Body weight 157 [lb_av] 157 [lb_av] eCW1 ([facility]) Body weight 71.21 kg 71.21 kg eCW1 ([facility]) Body height 59.6 [in_i] 59.6 [in_i] eCW1 ([facility]) Body mass index (BMI) [Ratio] 31.075 kg/m2 31.0 75 kg/m2 eCW1 ([facility]) Systolic blood pressure 136 mm[Hg] 136 mm[Hg] e CW1 ([facility]) Diastolic blood pressure 74 mm[Hg] 74 mm[Hg] eCW1 ([facility]) Body weight 154.2 [lb_av] 154.2 [lb_av] eCW1 ([facility]) Body height 59.6 [in_i] 59.6 [in_i] eCW1 ([facility]) Body mass index (BMI) [Ratio] 30.52 kg/m2 30.52 kg/m2 eCW1 ([facility]) Systolic blood pressure 102 mm[Hg] 102 mm[Hg] e CW1 ([facility]) Diastolic blood pressure 72 mm[Hg] 72 mm[Hg] eCW1 ([facility]) Body weight 143.2 [lb_av] 143.2 [lb_av] eCW1 ([facility]) Body height 59.6 [in_i] 59.6 [in_i] eCW1 ([facility]) Body mass index (BMI) [Ratio] 28.343 kg/m2 28.3 43 kg/m2 eCW1 ([facility]) Systolic blood pressure 114 mm[Hg] 114 mm[Hg] e CW1 ([facility]) Diastolic blood pressure 68 mm[Hg] 68 mm[Hg] eCW1 ([facility]) Body weight 137.2 [lb_av] 137.2 [lb_av] eCW1 ([facility]) Body height 59.6 [in_i] 59.6 [in_i] eCW1 ([facility]) Body mass index (BMI) [Ratio] 27.156 kg/m2 27.1 56 kg/m2 eCW1 ([facility]) Systolic blood pressure 112 mm[Hg] 112 mm[Hg] e CW1 ([facility]) Diastolic blood pressure 70 mm[Hg] 70 mm[Hg] eCW1 ([facility]) Body weight 135 [lb_av] 135 [lb_av] eCW1 ([facility]) Body height 59.6 [in_i] 59.6 [in_i] eCW1 ([facility]) Body mass index (BMI) [Ratio] 26.72 kg/m2 26.72 kg/m2 eCW1 ([facility]) Systolic blood pressure 104 mm[Hg] 104 mm[Hg] e CW1 ([facility]) Diastolic blood pressure 74 mm[Hg] 74 mm[Hg] eCW1 ([facility]) Body weight 129.4 [lb_av] 129.4 [lb_av] eCW1 ([facility]) Body weight 58.69 kg 58.69 kg [facility] Body height 59.6 [in_i] 59.6 [in_i] eCW1 ([facility]) Body mass index (BMI) [Ratio] 25.612 kg/m2 25.6 12 kg/m2 eCW1 ([facility]) Systolic blood pressure 118 mm[Hg] 118 mm[Hg] e CW1 ([facility]) Diastolic blood pressure 78 mm[Hg] 78 mm[Hg] eCW1 ([facility]) Heart rate 104 /min 104 /min MEDENT ([facility]) Body temperature 99.0 [degF] 99.0 [degF] MEDENT ([facility]) Oxygen saturation in Arterial blood by Pulse oximetry 98 % 98 % MEDENT ([facility]) Patient Treatment Plan of Care Planned Activity Planned Date Details Description Data Source (s) Iron (Ferrous Sulfate) 325 (65 Fe) MG 12/25/2020 12:00:00 AM EDT eCW1 ([facility]) pantoprazole 20 MG Delayed Release Oral Tablet 12/25/2020 12:00:00 AM EDT eCW1 ([facility]) pantoprazole 20 MG Delayed Release Oral Tablet 11/19/2020 12:00:00 AM EDT eCW1 ([facility]) ferrous sulfate 325 MG Oral Tablet 10/17/2020 12:00:00 AM EDT eCW1 ([facility]) ferrous sulfate 325 MG Oral Tablet 10/17/2020 12:00:00 AM EDT eCW1 ([facility])
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
[2021-01-03 20:53] VITALS: BP 135/88
[2021-01-03] MEDS: guaiFENesin ER 600 MG TAB PO SCH (21:00)
[2021-01-04] MEDS ORDERED: PRENATAL VITAMINS CHEWABLE TABLET PO SCH (09:00)
[2021-01-04] MEDS ORDERED: SERTRALINE HCL 50 MG TAB PO SCH (09:00)
[2021-01-04] MEDS ORDERED: PANTOPRAZOLE 20 MG TAB PO SCH (09:00)
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
[2021-01-04] MEDS: guaiFENesin ER 600 MG TAB PO SCH (10:29)
--- NOTE | 2021-01-04 11:07 | HPEPDOC ---
[facility] Medical History & Physical Date of Admission Jan 03, 2021 Date of Service: Jan 04, 2021 History and Physical Chief complaint: Presented to the ER with suicidal ideation / Was transitioned to [facility] for suicidal ideation after medically cleared History of present illness: Patient is a 25-year-old female who is 39 weeks and with PMHx of Sciatica and GERD who presented to the ER on 01/02, after experiencing suicidal thoughts Wednesday. Upon arrival patient had also noted COVID19 symptoms since Wednesday. She was admitted to the [facility] service and hospitalist services called for monoclonal antibiotic infusion given her high risk of progression. Patient had done relatively well on the subsequent day 01/03 and was transitioned to the inpatient mental health unit. Hospitalist service was consulted and the inpatient mental health unit for medical screening evaluation. Patient was seen and examined in her room. Patient was sitting up at the edge of the bed. Denies any headache, nausea, vomiting, chest pain, shortness breath, palpitations or cough. Denies any abdominal pain, diarrhea, or urinary discomfort. Past Medical History: Sciatica GERD COVID19 infection (01/01/2021) Past Surgical History: Tympanostomy [place] teeth resection Allergies: See below Medications: See below Family History: - Mother with history of thyroid problems, shortness of breath and diabetes - Father with unknown past medical history Social History: - Denies the use of alcohol, tobacco or illicit drugs - Denies recent travel; reports that she may have been exposed to her sons that have tested positive COVID19 yesterday - Lives with boyfriend and his 2 sons Review of Systems: 10 point review of systems complete, all negative otherwise stated in HPI Physical exam: - Vitals: BP [135/88], HR [95], RR [18], Sat [97%RA], Temp [97.9F] - General: Sitting up at the edge of the, Speaking in full sentences, Awake / Alert, Oriented x3 - HEENT: Normocephalic and normocephalic - CVS: RRR, +S1S2 - Lungs: Fair air entry bilaterally, auscultation is without any crackles, wheezing or rhonchi - Abdomen: Soft, Non-distended, Non-tender - Extremities: Lower extremities are without edema - Neuro: No focal motor or sensory deficit - Skin: No visible rashes Labs: See below Imaging: See below EKG: See below Assessment and Plan: Suicidal ideation - Patient has been admitted to the inpatient mental health unit under the care of psychiatry - Currently being managed by psychiatry COVID19 - This morning patient appears to be essentially asymptomatic - Saturating well on room air - COVID 19 positive on 01/01/2021 - s/p Monoclonal antibody infusion on 01/02/2021 - Will c/w Mucinex - Will add incentive spirometry - Patient is 39 weeks - Due date 01/10/2021 - Discussed with [facility], Dr. Bruno; will continue to follow today for monitoring Sciatica - c/w Tylenol PRN GERD - c/w Protonix DVT prophylaxis - Will c/w early ambulation Thank you for this consultation. Hospitalist service will now sign off; please reconsult as needed. Vital Signs Vital Signs Date Time Temp Pulse Resp B/P (MAP) Pulse Ox O2 Delivery O2 Flow Rate FiO2 01/03/21 20:53 97.9 95 18 135/88 (104) 97 Room Air Home Medications Scheduled Ferrous Sulfate (Ferrous Sulfate) 325 Mg Tablet.dr, 325 MG PO DAILY Pantoprazole Sodium (Pantoprazole Sodium) 20 Mg Tablet.dr, 20 MG PO DAILY No122/Iron/Folic Acid ( Multi Tablet) 1 Each Tablet, 1 TAB PO DAILY Scheduled PRN Acetaminophen (Acetaminophen 8 Hour) 650 Mg Tablet.er, 650 MG PO TID PRN for PAIN LEVEL 1-4 Allergies Coded Allergies: No Known Allergies (Unverified , 01/17/20) APPLE GODWIN MD Jan 04, 2021 11:07
[2021-01-04 20:51] VITALS: BP 167/72
[2021-01-04 21:00] VITALS: BP 150/70
[2021-01-04 21:15] VITALS: BP 121/79
[2021-01-04 22:08] VITALS: BP 124/74
[2021-01-04] MEDS ORDERED: LR 1,000 ML IV ONE (22:50)
[2021-01-04] MEDS ORDERED: LR 1,000 ML IV SCH (22:50)
[2021-01-04] MEDS ORDERED: MUCI60TA7 PO (23:52)
[2021-01-04] MEDS ORDERED: ZOLO50TA PO (23:52)
--- NOTE | 2021-01-05 11:48 | MHDSPDOC ---
[facility] Discharge Summary Discharge Summary DATE OF ADMISSION: Jan 03, 2021 at 19:57 DATE OF DISCHARGE: Jan 04, 2021 at 23:42 Late entry, patient was discharged overnight January 04, 2021 Discharge diagnoses: Peripartum depression Other specified depressive disorder Intrauterine , 39 weeks Reason for admission:Patient is a 25 -year-old , 39 weeks female, who tested positive for covid and is on contact isolation until January 16, who presented to the hospital 01/01 with abdominal and back pain, possible covert symptoms with known exposure and positive testing on PCR. On the hospital floor she reported depression with suicidal ideations and was started on sertraline 50 mg p.o. daily and placed on one-to-one. She is agreeable to starting the medication after being made aware of common and rare side effects, also lower amounts in the breast milk for breast-feeding, was made aware to follow-up with ENTERTAINMENT REPORTER to reassess for safety taking medication in or any concerns for breast-feeding. Patient has no prior [facility] admissions. Toxicology screen is negative for drugs or alcohol and does not report any drug or alcohol use during . Patient reports low mood which has improved with sertraline 50 mg po daily, discussed common side effects and was given a report educational materials on and breast feeding while taking sertraline. Patient is agreeable to continue the medication, currently denies any suicidal ideations since coming in, feels moods are okay was able to sleep overnight, reports hopelessness has improved reports she was stressed out due to her boyfriend's ex-girlfriend getting upset with my boyfriend, asking him to watch the kids despite the patient being ready to go into labor any week, states she felt she could not help him and this added to her overall stress, states that stress became overwhelming and then she had developed thoughts of wanting to drown or hang herself, reported not having suicidal ideation since she was a teenager. Reports on discharge she wants to go to therapy, is excited to have her child has no thoughts of harming the baby, overall is "feeling better". Per Dr Alexander's consultation note: "Lynnette is a 25 year old female who is 39 weeks and presented to the ED for suicidal ideation and depression. she tested positive for covid 2 days ago but she says she has been having symptoms for 4 days. She reports feeling depressed, although she says this is not the first time she feels this way. she has had suicidal ideation before but she has not attempted suicide before and she says that she realizes she has been upset because her boyfriend ex interferes in their relationship and her ex does that too. She reports feeling sad, irritable, has trouble sleeping but this is related to her , her appetite is decreased since she was infected with covid. She has guilty thoughts, at times, she has poor attention and concentration, at times she feels hopeless and helpless but at the same time she says she feels happy for her , she feels anxious about her delivery but wants to enjoy her baby and go home after delivery. She says she still has SI and reports there's family history of depression and anxiety on her maternal side of the family and "multiple other psychiatric problems" in her father, whom she reports abusing alcohol and other drugs. She says nobody has committed suicide in her family. She lives with her boyfriend and according to what she says, she has support in this area." Vital signs: See below Consultants involved: See medical H&P by hospitalist Treatment and progress on the unit: Patient was admitted to the [facility] on a 9.39 legal status and was afforded the following treatment modalities: 1. Individual therapy 2. Group therapy 3. Medication management 4. Milieu therapy 5. Safe environment Hospital course: Patient was admitted to the [facility] on a 9.39 legal status. Was medically cleared prior to coming up to the [facility]. Patient was positive for covid 19, was placed on contact isolation, patient was initially transferred to medical floor but was deemed necessary admit to psychiatric floor and again placed on contact isolation, patient denied any severe symptoms of Covid, on medical floor was consulted by psychiatry and seen by Dr. Alexander and started on sertraline 50 mg p.o. daily, patient was made aware of possible side effects, sex on the developing fetus, risks of breast-feeding, was provided with educational materials regarding possible side effects and risks which were further discussed with the patient. Was relatively asymptomatic with regards to Covid symptoms while on the [facility] and treated with supportive measures on the unit after evaluation by hospitalist team, had reported cough prior to admission, which had subsided. Patient found medications beneficial and tolerated them well. Patient denies side effects to the medication. Patient reported that she did not have any suicidal ideation since admission, that the medication helped with mood despite a short course. Patient was placed in the hospital bed while on the inpatient unit. Patient denied any acute physical complaints including abdominal pain, signs of fever, chest pain, shortness of breath or any numbness or tingling in extremities, denied changes in bowel habits, or urination. Vital signs are stable during course of stay. Hospitalist team and consult with ENTERTAINMENT REPORTER for monitoring daily while on the unit, was determined that patient was going into labor so was transferred overnight on January 04, 2021 to the labor and delivery unit. Mental status was established during intake appointment, as she was evaluated and discharged the same day. Discharge assessment: Per this technical document writer's H&P assessment: "Patient is a 25-year-old female with a history of depression and anxiety, formerly with [facility] and taking BuSpar, fluoxetine and trazodone, but discontinued medications in context of and is now 39 weeks , denies any acute physical symptoms bothering her, did present with back pain and abdominal pain, which she reports is improved, also reports covid-19 symptoms have improved and has only some has some mild stuffiness, no shortness of breath, cough has gone away. Will need routine monitoring of , nursing is aware, was started on sertraline 50 mg p.o. daily on the medical floor and transferred to the inpatient psychiatric unit with good response to medication, with reported decrease in depression and anxiety symptoms, no longer reporting suicidal ideations that she had reported on admission. Patient remains future oriented, wanting to have the , see her child, has no negative thoughts towards the child or thoughts of harming the child, denies any medication side effects and is agreeable not to make any changes and continue sertraline at its current dose, was given literature on the risks of taking Zoloft toward self and fetus regarding side effects, possible effect on developing child and possible teratogenic effect and we discussed common and rare side effects together. OB /CASE REVIEWER will follow for monitoring per hospitalist evaluation, receives Mucinex and incentive spirometry for relatively asymptomatic covid symptoms." Mental status, as per H&P completed on the same day: General Appearance: well groomed, hospital scubs/clothing, other (Red hair, with protruding abdomen consistent with a 39-week ) Build: overweight Demeanor: average Eye Contact: average Activity: anxious Behavior: cooperative Speech: clear, spontaneous, reg/rate,rhythm,volume Mood: euthymic Affect: full Thought Process: logical/linear, patient had denied suicidal ideation, intent or plan, denied homicidal ideation, intent or plan, no signs of psychosis or emory Thought Content (Delusions): none reported Thought Content (Other): none reported Thought Content (Aggressive): none reported Perception (Hallucinations): none reported Perception (Other): none reported Cognition (Impairment of): none reported Cognition(Intelligence Est.): average Oriented: Awake, Alert, Oriented times three Insight: good Judgment: Fair Psychosis: Denies Medications on discharge: see medication reconciliation: CSSRS on discharge: Wish to be : No nonspecific active suicidal thoughts: No lifetime attempts: 0 interrupted attempts: 0 aborted attempts: 0 preparatory acts or behavior: None Taking into consideration safety state, status, modifiable, non-modifiable risk factors patient is at low risk on discharge for suicide according to [place] suicide evaluation. PLAN/FOLLOWUP ARRANGEMENTS: Transferred to labor and delivery at [facility] The amount of time spent in the coordination of care for this patient was approximately 20 minutes. ETOH/Disorder Med Rx ETOH/DRUG DISORDER RX: N/A Vital Signs/I&Os Vital Signs Date Time Temp Pulse Resp B/P (MAP) Pulse Ox O2 Delivery O2 Flow Rate FiO2 01/04/21 22:08 98.7 71 20 124/74 (91) 01/04/21 21:15 95 Room Air Medications Scheduled Ferrous Sulfate (Ferrous Sulfate) 325 Mg Tablet.dr, 325 MG PO DAILY, (Reported) Pantoprazole Sodium (Pantoprazole Sodium) 20 Mg Tablet.dr, 20 MG PO DAILY, (Reported) No122/Iron/Folic Acid ( Multi Tablet) 1 Each Tablet, 1 TAB PO DAILY, (Reported) Sertraline Hcl (Zoloft) 50 Mg Tablet, 1 TAB PO DAILY for 30 Days, #30 (Reported) Miscellaneous Medications Guaifenesin/Pseudoephedrne HCl (Mucinex D ER 600-60 mg Tablet) 1 Each Tab.er.12h, 1 TAB PO, (Reported) Allergies Coded Allergies: No Known Allergies (Unverified , 01/17/20) MANOLO NIELSEN MD Jan 05, 2021 11:48
== END 2021-01-04 23:42 | disposition still patient (30) | DRG 566 ==
LOC: M PSY 19:57
PROVIDERS: ADMIT Psychiatry & Neurology Psychiatry; ATTEND Student in an Organized Health Care Education/Training Program
DX: O99.343 Other mental disorders complicating pregnancy, third trimester (principal); F32.A Depression, unspecified; Z3A.39 39 weeks gestation of pregnancy; O98.513 Other viral diseases complicating pregnancy, third trimester; U07.1 COVID-19; Z79.899 Other long term (current) drug therapy; R45.851 Suicidal ideations; Z63.0 Problems in relationship with spouse or partner; O99.613 Diseases of the digestive system complicating pregnancy, third trimester; K21.9 Gastro-esophageal reflux disease without esophagitis; O26.893 Other specified pregnancy related conditions, third trimester; M54.30 Sciatica, unspecified side

== ENCOUNTER 2021-01-04 23:01 | Inpatient (IN) | payer OTHER ==
[~2021-01-04] VITALS: Ht 149.9 cm; Wt 82.2 kg
[2021-01-04 21:44] VITALS: BP 124/74
--- OUTSIDE RECORDS SUMMARY | 2021-01-04 23:04 | CCD ---
Author Author [facility] Organization [facility] Address Unknown Phone Unavailable Care Team Providers Care Procurement Consultant Name Role Phone Lili GARCIA MD Unavailable [...] GARCIA MD Unavailable Unavailable BUMBANAC, A STAR PLANNING RN Unavailable Unavailable BUMBANAC, A STAR PLANNING RN Unavailable Unavailable BUMBANAC, A STAR PLANNING RN Unavailable Unavailable BUMBANAC, A STAR PLANNING RN Unavailable Unavailable BUMBANAC, A STAR PLANNING RN Unavailable Unavailable BUMBANAC, A STAR PLANNING RN Unavailable Unavailable BUMBANAC, A STAR PLANNING RN Unavailable Unavailable BUMBANAC, A STAR PLANNING RN Unavailable Unavailable BUMBANAC, A STAR PLANNING RN Unavailable Unavailable BUMBANAC, A STAR PLANNING RN Unavailable Unavailable BUMBANAC, A STAR PLANNING RN Unavailable Unavailable BUMBANAC, A STAR PLANNING RN Unavailable Unavailable BUMBANAC, A STAR PLANNING RN Unavailable Unavailable BUMBANAC, A STAR PLANNING RN Unavailable Unavailable BUMBANAC, A STAR PLANNING RN Unavailable Unavailable BUMBANAC, A STAR PLANNING RN Unavailable Unavailable BUMBANAC, A STAR PLANNING RN Unavailable Unavailable BUMBANAC, A STAR PLANNING RN Unavailable Unavailable BUMBANAC, A STAR PLANNING RN Unavailable Unavailable BUMBANAC, A STAR PLANNING RN Unavailable Unavailable BUMBANAC, A STAR PLANNING RN Unavailable Unavailable BUMBANAC, A STAR PLANNING RN Unavailable Unavailable BUMBANAC, A STAR PLANNING RN Unavailable Unavailable BUMBANAC, A STAR PLANNING RN Unavailable Unavailable BUMBANAC, A STAR PLANNING RN Unavailable Unavailable BUMBANAC, A STAR PLANNING RN Unavailable Unavailable BUMBANAC, A STAR PLANNING RN Unavailable Unavailable BUMBANAC, A STAR PLANNING RN Unavailable Unavailable BUMBANAC, A STAR PLANNING RN Unavailable Unavailable BUMBANAC, A STAR PLANNING RN Unavailable Unavailable BUMBANAC, A STAR PLANNING RN Unavailable Unavailable Re-disclosure Warning The records that [...] is protected by Article 27-F of the [place] Public Health law. If you continue you may have access to information: Regarding HIV / AIDS; Provided by facilities licensed or operated by the [facility] Office of Mental Health; or Provided by the [facility] Office for People With Developmental Disabilities. If such information is present, then the following [facility] mandated warning applies: This information has been [...] law may result in a fine or nursing home sentence or both. A general authorization for the release of medical or other information is NOT sufficient authorization for further disc losure. Encounters Encounter Providers Location Date Indications Data Source(s ) Unknown [address] [facility] [address] 01/01/2021 12:00:00 AM EDT eCW1 ([facility]) ( ESTOB) [facility] [address] [place] [address] 12/19/2020 12:00:00 AM EDT eCW1 ([facility]) ( ESTOB) [facility] [address] [place] [address] 12/09/2020 12:00:00 AM EDT eCW1 ([facility]) Unknown [address] [facility] [address] 11/21/2020 12:00:00 AM EDT eCW1 ([facility]) ( ESTOB) [facility] [address] [place] [address] 11/19/2020 12:00:00 AM EDT eCW1 ([facility]) ( ESTOB) [facility] [address] [place] [address] 11/07/2020 12:00:00 AM EDT eCW1 ([facility]) Unknown [address] [facility] [address] 10/23/2020 12:00:00 AM EDT eCW1 ([facility]) Unknown [address] [facility] [address] 10/17/2020 12:00:00 AM EDT eCW1 ([facility]) ( ESTOB) [facility] [address] [place] [address] 10/08/2020 12:00:00 AM EDT eCW1 ([facility]) Unknown [address] [facility] [address] 10/01/2020 12:00:00 AM EDT eCW1 ([facility]) Outpatient Attender: EMILY GARCIA MD 09/27 12:42:26 PM EDT - 09/27/2020 12:50:34 PM EDT [facility] ([facility] ) Outpatient 09/25/2020 10:08:32 AM EDT - 021 11:05:43 AM EDT [facility] ([facility]) ( ESTOB) [facility] [address] [place] [address] 08/29/2020 12:00:00 AM EDT eCW1 ([facility]) ( ESTOB) [facility] [address] [place] [address] 08/01/2020 12:00:00 AM EDT eCW1 ([facility]) ( ESTOB) [facility] [address] [place] [address] 07/04/2020 12:00:00 AM EDT eCW1 ([facility]) ( NEWOB) [facility] New OB Visit [address] [place] [address] 06/06/2020 12:00:00 AM EDT eCW1 ([facility]) Outpatient Attender: MADONNA CHAIREZ NP 03/04 05:28:00 PM EST - 03/04/2020 05:28:00 PM EST [facility] Immunizations Vaccine Date Status Description Data Source(s) Tdap 11/07/2020 03:01:00 PM EDT completed e CW1 ([facility]) Tdap 11/07/2020 03:01:00 PM EDT completed e CW1 ([facility]) Tdap 11/07/2020 03:01:00 PM EDT completed e CW1 ([facility]) Tdap 11/07/2020 03:01:00 PM EDT completed e CW1 ([facility]) Tdap 11/07/2020 03:01:00 PM EDT completed e CW1 ([facility]) Tdap 11/07/2020 03:01:00 PM EDT completed e CW1 ([facility]) Medications Medication Brand Name Start Date Product Form Dose Route Admi nistrative Instructions Pharmacy Instructions Status Indications Reaction Description Data Source(s) pantoprazole 20 MG Delayed Release Oral Tablet Pantopr azole Sodium 20 MG Pantoprazole Sodium 20 MG 12/25/2020 12:00:00 AM EDT 1.0 {tablet} active Pantoprazole Sodium 20 MG eCW1 ( [facility]) Iron (Ferrous Sulfate) 325 (65 Fe) MG Iron (Ferrous Sulfate) 325 (65 Fe) MG 12/25/2020 12:00:00 AM EDT 1.0 {tablet} active Iron (Ferrous Sulfate) 325 (65 Fe) MG eCW1 ([facility]) Iron (Ferrous Sulfate) 325 (65 Fe) MG Iron (Ferrous Sulfate) 325 (65 Fe) MG 12/25/2020 12:00:00 AM EDT 1.0 {tablet} active Iron (Ferrous Sulfate) 325 (65 Fe) MG eCW1 ([facility]) pantoprazole 20 MG Delayed Release Oral Tablet Pantopr azole Sodium 20 MG Pantoprazole Sodium 20 MG 12/25/2020 12:00:00 AM EDT 1.0 {tablet} active Pantoprazole Sodium 20 MG eCW1 ( [facility]) 20 mg 11/20/2020 12:00:00 AM EDT tablet,delayed release (DR/EC) 30 TAKE ONE TABLET BY MOUTH EVERY DAY TAKE ONE TABLET BY MOUTH EVERY DAY SOLD: 11/26/2020 [facility] pantoprazole 20 MG Delayed Release Oral Tablet Pantopr azole Sodium 20 MG Pantoprazole Sodium 20 MG 11/19/2020 12:00:00 AM EDT 1.0 {tablet} active Pantoprazole Sodium 20 MG eCW1 ( [facility]) pantoprazole 20 MG Delayed Release Oral Tablet Pantopr azole Sodium 20 MG Pantoprazole Sodium 20 MG 11/19/2020 12:00:00 AM EDT 1.0 {tablet} active Pantoprazole Sodium 20 MG eCW1 ( [facility]) pantoprazole 20 MG Delayed Release Oral Tablet Pantopr azole Sodium 20 MG Pantoprazole Sodium 20 MG 11/19/2020 12:00:00 AM EDT 1.0 {tablet} active Pantoprazole Sodium 20 MG eCW1 ( [facility]) pantoprazole 20 MG Delayed Release Oral Tablet Pantopr azole Sodium 20 MG Pantoprazole Sodium 20 MG 11/19/2020 12:00:00 AM EDT 1.0 {tablet} active Pantoprazole Sodium 20 MG eCW1 ( [facility]) pantoprazole 20 MG Delayed Release Oral Tablet Pantopr azole Sodium 20 MG Pantoprazole Sodium 20 MG 11/19/2020 12:00:00 AM EDT 1.0 {tablet} active Pantoprazole Sodium 20 MG eCW1 ( [facility]) 325 mg (65 mg iron) 10/18/2020 12:00:00 AM EDT tablet 30 TAKE ONE TABLET BY MOUTH EVERY DAY TAKE ONE TABLET BY MOUTH EVERY DAY SOLD: 10/25/2020 [facility] ferrous sulfate 325 MG Oral Tablet Ferrous Sulfate 325 (65 Fe) MG Ferrous Sulfate 325 (65 Fe) MG 10/17/2020 12:00:00 AM EDT 1.0 {tablet} active Ferrous Sulfate 325 (65 Fe) MG eCW1 ([facility]) ferrous sulfate 325 MG Oral Tablet Ferrous Sulfate 325 (65 Fe) MG Ferrous Sulfate 325 (65 Fe) MG 10/17/2020 12:00:00 AM EDT 1.0 {tablet} active Ferrous Sulfate 325 (65 Fe) MG eCW1 ([facility]) ferrous sulfate 325 MG Oral Tablet Ferrous Sulfate 325 (65 Fe) MG Ferrous Sulfate 325 (65 Fe) MG 10/17/2020 12:00:00 AM EDT 1.0 {tablet} active Ferrous Sulfate 325 (65 Fe) MG eCW1 ([facility]) ferrous sulfate 325 MG Oral Tablet Ferrous Sulfate 325 (65 Fe) MG Ferrous Sulfate 325 (65 Fe) MG 10/17/2020 12:00:00 AM EDT 1.0 {tablet} active Ferrous Sulfate 325 (65 Fe) MG eCW1 ([facility]) ferrous sulfate 325 MG Oral Tablet Ferrous Sulfate 325 (65 Fe) MG Ferrous Sulfate 325 (65 Fe) MG 10/17/2020 12:00:00 AM EDT 1.0 {tablet} active Ferrous Sulfate 325 (65 Fe) MG eCW1 ([facility]) ferrous sulfate 325 MG Oral Tablet Ferrous Sulfate 325 (65 Fe) MG Ferrous Sulfate 325 (65 Fe) MG 10/17/2020 12:00:00 AM EDT 1.0 {tablet} active Ferrous Sulfate 325 (65 Fe) MG eCW1 ([facility]) ferrous sulfate 325 MG Oral Tablet Ferrous Sulfate 325 (65 Fe) MG Ferrous Sulfate 325 (65 Fe) MG 10/17/2020 12:00:00 AM EDT 1.0 {tablet} active Ferrous Sulfate 325 (65 Fe) MG eCW1 ([facility]) ferrous sulfate 325 MG Oral Tablet Ferrous Sulfate 325 (65 Fe) MG Ferrous Sulfate 325 (65 Fe) MG 10/17/2020 12:00:00 AM EDT 1.0 {tablet} active Ferrous Sulfate 325 (65 Fe) MG eCW1 ([facility]) 1 % 08/27/2020 12:00:00 AM EDT cream 45 INSERT 1 APPLICATORFUL VAGINALLY IN THE EVENING DIRECTED INSERT 1 APPLICATORFUL VAGINALLY IN THE EVENING DIRECTED SOLD: 08/28/2020 [facility] NITROFURANTOIN, MACROCRYSTALS 25 MG / Ni trofurantoin, Monohydrate 75 MG Oral Capsule 100 mg NITROFURANTOIN MONOHYD/M-CRYST 08/26/2020 12:00:00 AM EDT ca psule 14 TAKE ONE CAPSULE BY MOUTH TWICE A DAY TAKE ONE CAPSULE BY MOUTH TWICE A DAY SOLD: 08/26/2020 [facility] buspirone hydrochloride 10 MG Oral [...] type / Coverage type Policy ID Covered alliance party ID Covered alliance party's relationship to harris Policy Harris Plan Information CareGivers- [facility] [id number] Employee [id number] [facility] [id number] SP [id number] [place] [id number] SP 7 [id number] [facility] O [id number] O [id number] MEDICAID M [id number] S [id number] MEDICAID M UNAVAILABLE S UNAVAILA BLE [facility] [id number] 18 [id number] Problems, Conditions, and Diagnoses Code Display Name Description Problem Type Effective Dates Data Source(s) O99.013 Anemia complicating , third tri mester Anemia complicating in third trimester Problem 12/18/2020 12:00:00 AM EDT eCW1 ([facility]) K21.9 [id number] Acid reflux Problem 11/19/2020 12:00:00 AM E DT eCW1 ([facility]) O99.019 Anemia in mother complicating , childbirth AND/OR puerperium Anemia complicating , unspecified trimester Problem 0 10/17/2020 12:00:00 AM EDT eCW1 ([facility]) Z34.80 care Supervision of other normal P roblem 06/06/2020 12:00:00 AM EDT eCW1 ([facility]) Surgeries/Procedures No Information Results ID Date Data Source GROUP B STREP CULTURE 12/19/2020 12:00:00 AM EDT eCW1 ([facility]) Name Value Range Interpretation Code Description Data Melissa rce(s) Supporting Document(s) GROUP B STREP CULTURE eCW1 ([facility]) ID Date Data Source PAP REQUEST FOR SERVICE 07/04/2020 12:00:00 AM EDT eCW1 ([facility]) Name Value Range Interpretation Code Description Data Melissa rce(s) Supporting Document(s) PAP REQUEST FOR SERVICE eCW1 ( [facility]) ID Date Data Source URINE CULTURE 07/04/2020 12:00:00 AM EDT eCW1 ([facility]) Name Value Range Interpretation Code Description Data Melissa rce(s) Supporting Document(s) URINE CULTURE eCW1 ([facility]) ID Date Data Source HBSAG 06/06/2020 12:00:00 AM EDT eCW1 ([facility]) Name Value Range Interpretation Code Description Data Melissa rce(s) Supporting Document(s) NEGATIVE NEGATIVE eCW1 ([facility]) ID Date Data Source HEPATITIS C ANTIBODY INDEX 06/06/2020 12:00:00 AM EDT eCW1 ( [facility]) Name Value Range Interpretation Code Description Data Melissa rce(s) Supporting Document(s) < 0.0 <0.8 eCW1 ([facility]) ID Date Data Source RUBELLA IMMUNE STATUS IgG 06/06/2020 12:00:00 AM EDT eCW1 ([facility]) Name Value Range Interpretation Code Description Data Melissa rce(s) Supporting Document(s) IMMUNE IMMUNE eCW1 ([facility]) ID Date Data Source SYPHILIS ANTIBODY (RPR SCREEN) 06/06/2020 12:00:00 AM EDT eC W1 ([facility]) Name Value Range Interpretation Code Description Data Melissa rce(s) Supporting Document(s) NONREACTIVE NONREACTIVE eCW1 ([facility]) ID Date Data Source [id number] 06/06/2020 12:00:00 AM EDT eCW1 ([facility]) Name Value Range Interpretation Code Description Data Melissa rce(s) Supporting Document(s) eCW1 ([facility]) ID Date Data Source CHLAMYDIA & GC DNA AMPLIFICAT 06/06/2020 12:00:00 AM EDT eCW 1 ([facility]) Name Value Range Interpretation Code Description Data Melissa rce(s) Supporting Document(s) Chlamydia trachomatis rRNA [Presence] in Unspecified specimen by Probe and target amplification method NEGATIVE NEGATIVE eCW1 ([facility]) ID Date Data Source CBC - Complete Blood Count 06/06/2020 12:00:00 AM EDT eCW1 ( [facility]) Name Value Range Interpretation Code Description Data Melissa rce(s) Supporting Document(s) 8.3 4.0-10.0 eCW1 ([facility]) 37.2 36.0-47.0 eCW1 ([facility]) 12.0 12.0-15.5 eCW1 ([facility]) 4.18 4.00-5.40 eCW1 ([facility]) 89.0 80.0-96.0 eCW1 ([facility]) 32.3 32.0-36.5 eCW1 ([facility]) 14.3 11.5-14.5 eCW1 ([facility]) 287 150-450 eCW1 ([facility]) 28.7 27.0-33.0 eCW1 ([facility]) ID Date Data Source Type and Screen Prenatal1 06/06/2020 12:00:00 AM EDT eCW1 ([facility]) Name Value Range Interpretation Code Description Data Melissa rce(s) Supporting Document(s) NEGATIVE eCW1 ([facility]) ID Date Data Source [id number] 03/04/2020 06:25:00 PM EST [facility] Name Value Range Interpretation Code Description Data Melissa rce(s) Supporting Document(s) SARS coronavirus 2 [facility] This lab was ordered by [facility] maria and reported by [facility]. ID Date Data Source [id number] 03/07/2020 07:39:00 AM EST [facility] Name Value Range Interpretation Code Description Data Melissa rce(s) Supporting Document(s) SARS-CoV-2, ALONZO Not Detected Not Detected [facility] This nucleic acid amplification test was developed and its performancecharacteristics determined by [facility]. Nucleic acidamplification tests include PCR and TMA. [...] in this assay. ID Date Data Source [id number] 03/04/2020 06:25:00 PM EST [facility]) Name Value Range Interpretation Code Description Data Melissa rce(s) Supporting Document(s) Influenza virus B RNA [Presence] in Unsp ecified specimen by Probe and target amplification method Laboratory test result [facility] ([facility]) Influenza virus A RNA [Presence] in Unsp ecified specimen by Probe and target amplification method Laboratory test result [facility] ([facility]) ID Date Data Source [id number] 03/04/2020 06:25:00 PM EST [facility] ([facility]) Name Value Range Interpretation Code Description Data Melissa rce(s) Supporting Document(s) Laboratory test finding (navigational concept) Laboratory test result [facility] ([facility]) ID Date Data Source [id number] 01/09/2020 12:00:00 AM EDT [facility] April Hancock Cnm Patient Name: BUSHRA ANTOINE [facility] Date of : 1995[place] , [place] [address] Date of Exam: 01/09/2020#: Fax: [phone] EXAM: [...] 0.9 x0.7 cm.Followup is recommended.Accredited by the [employer] in Obstetrical Ultrasound.JESSICA Loo/Norberto you for referring ROSA ANTOINE to our office. Electronically Signed - MOE LUX DO 01/10/20 14:35 Name Value Range Interpretation Code Description Data Melissa rce(s) Supporting Document(s) ID Date Data Source [id number] 01/09/2020 12:00:00 AM EDT [facility] April Hancock Cnm Patient Name: ROSA ANTOINE622 [facility] Date of : 1995[place] [address] Date of Exam: 01/09/2020#: Fax: [phone] EXAM: [...] 0.9 x0.7 cm.Followup is recommended.Accredited by the [employer] in Obstetrical Ultrasound.JESSICA Loo/Norberto you for referring ROSA ANTOINE to our office. Electronically Signed - MOE LUX DO 01/10/20 14:35 Name Value Range Interpretation Code Description Data Melissa rce(s) Supporting Document(s) Procedure Social History Code Duration Value Status Description Data Source(s ) Smoking 12/26/2020 12:00:00 AM EDT Never Smoker completed Never S moker eCW1 ([facility]) Smoking 12/26/2020 12:00:00 AM EDT Never Smoker completed Never S moker eCW1 ([facility]) Smoking 12/16/2020 12:00:00 AM EDT Never Smoker completed Never S moker eCW1 ([facility]) Smoking 12/16/2020 12:00:00 AM EDT Never Smoker completed Never S moker eCW1 ([facility]) Smoking 11/12/2020 12:00:00 AM EDT Never Smoker completed Never S moker eCW1 ([facility]) Smoking 11/04/2020 12:00:00 AM EDT Never Smoker completed Never S moker eCW1 ([facility]) Smoking 10/08/2020 12:00:00 AM EDT Never Smoker completed Never S moker eCW1 ([facility]) Smoking 10/08/2020 12:00:00 AM EDT Never Smoker completed Never S moker eCW1 ([facility]) Smoking 10/08/2020 12:00:00 AM EDT Never Smoker completed Never S moker eCW1 ([facility]) Smoking 08/29/2020 12:00:00 AM EDT Never Smoker completed Never S moker eCW1 ([facility]) Smoking 08/29/2020 12:00:00 AM EDT Never Smoker completed Never S moker eCW1 ([facility]) Smoking 08/01/2020 12:00:00 AM EDT Never Smoker completed Never S moker eCW1 ([facility]) Smoking 07/04/2020 12:00:00 AM EDT Never Smoker completed Never S moker eCW1 ([facility]) Smoking 06/06/2020 12:00:00 AM EDT Never Smoker completed Never S moker eCW1 ([facility]) Vital Signs ID Date Data Source UNK Name Value Range Interpretation Code Description Data Source(s) Body weight 178 [lb_av] 178 [lb_av] eCW1 ([facility]) Body weight 80.74 kg 80.74 kg eCW1 ([facility]) Body height 59.6 [in_i] 59.6 [in_i] eCW1 ([facility]) Body mass index (BMI) [Ratio] 35.231 kg/m2 35.2 31 kg/m2 eCW1 ([facility]) Systolic blood pressure 120 mm[Hg] 120 mm[Hg] e CW1 ([facility]) Diastolic blood pressure 70 mm[Hg] 70 mm[Hg] eCW1 ([facility]) Body weight 177.6 [lb_av] 177.6 [lb_av] eCW1 ([facility]) Body weight 80.56 kg 80.56 kg eCW1 ([facility]) Body height 59.6 [in_i] 59.6 [in_i] eCW1 ([facility]) Body mass index (BMI) [Ratio] 35.152 kg/m2 35.1 52 kg/m2 eCW1 ([facility]) Systolic blood pressure 122 mm[Hg] 122 mm[Hg] e CW1 ([facility]) Diastolic blood pressure 82 mm[Hg] 82 mm[Hg] eCW1 ([facility]) Diastolic blood pressure 70 mm[Hg] 70 mm[Hg] eCW1 ([facility]) Body weight 169.2 [lb_av] 169.2 [lb_av] eCW1 ([facility]) Body weight 76.75 kg 76.75 kg eCW1 ([facility]) Body height 59.6 [in_i] 59.6 [in_i] eCW1 ([facility]) Body mass index (BMI) [Ratio] 33.49 kg/m2 33.49 kg/m2 eCW1 ([facility]) Systolic blood pressure 124 mm[Hg] 124 mm[Hg] e CW1 ([facility]) Body weight 157 [lb_av] 157 [lb_av] eCW1 ([facility]) Body weight 71.21 kg 71.21 kg eCW1 ([facility]) Body height 59.6 [in_i] 59.6 [in_i] eCW1 ([facility]) Body mass index (BMI) [Ratio] 31.075 kg/m2 31.0 75 kg/m2 eCW1 ([facility]) Systolic blood pressure 136 mm[Hg] 136 mm[Hg] e CW1 ([facility]) Diastolic blood pressure 74 mm[Hg] 74 mm[Hg] eCW1 ([facility]) Body weight 154.2 [lb_av] 154.2 [lb_av] eCW1 ([facility]) Body height 59.6 [in_i] 59.6 [in_i] eCW1 ([facility]) Body mass index (BMI) [Ratio] 30.52 kg/m2 30.52 kg/m2 W1 ([facility]) Systolic blood pressure 102 mm[Hg] 102 mm[Hg] e CW1 ([facility]) Diastolic blood pressure 72 mm[Hg] 72 mm[Hg] eCW1 ([facility]) Body weight 143.2 [lb_av] 143.2 [lb_av] eCW1 ([facility]) Body height 59.6 [in_i] 59.6 [in_i] eCW1 ([facility]) Body mass index (BMI) [Ratio] 28.343 kg/m2 28.3 43 kg/m2 eCW1 ([facility]) Systolic blood pressure 114 mm[Hg] 114 mm[Hg] e CW1 ([facility]) Diastolic blood pressure 68 mm[Hg] 68 mm[Hg] eCW1 ([facility]) Body weight 137.2 [lb_av] 137.2 [lb_av] eCW1 ([facility]) Body height 59.6 [in_i] 59.6 [in_i] eCW1 ([facility]) Body mass index (BMI) [Ratio] 27.156 kg/m2 27.1 56 kg/m2 eCW1 ([facility]) Systolic blood pressure 112 mm[Hg] 112 mm[Hg] e CW1 ([facility]) Diastolic blood pressure 70 mm[Hg] 70 mm[Hg] eCW1 ([facility]) Body weight 135 [lb_av] 135 [lb_av] eCW1 ([facility]) Body height 59.6 [in_i] 59.6 [in_i] eCW1 ([facility]) Body mass index (BMI) [Ratio] 26.72 kg/m2 26.72 kg/m2 eCW1 ([facility]) Systolic blood pressure 104 mm[Hg] 104 mm[Hg] e CW1 ([facility]) Diastolic blood pressure 74 mm[Hg] 74 mm[Hg] eCW1 ([facility]) Body weight 129.4 [lb_av] 129.4 [lb_av] eCW1 ([facility]) Body weight 58.69 kg 58.69 kg eCW1 ([facility]) Body height 59.6 [in_i] 59.6 [in_i] eCW1 ([facility]) Body mass index (BMI) [Ratio] 25.612 kg/m2 25.6 12 kg/m2 eCW1 ([facility]) Systolic blood pressure 118 mm[Hg] 118 mm[Hg] e CW1 ([facility]) Diastolic blood pressure 78 mm[Hg] 78 mm[Hg] eCW1 ([facility]) Heart rate 104 /min 104 /min [facility] ([facility]) Body temperature 99.0 [degF] 99.0 [degF] [facility] ([facility]) Oxygen saturation in Arterial blood by [facility] 98 % 98 [facility] Patient Treatment Plan of Care Planned Activity Planned Date Details Description Data Source (s) Iron (Ferrous Sulfate) 325 (65 Fe) MG 12/25/2020 12:00:00 AM EDT eCW1 ([facility]) pantoprazole 20 MG Delayed Release Oral Tablet 12/25/2020 12:00:00 AM EDT eCW1 ([facility]) Iron (Ferrous Sulfate) 325 (65 Fe) MG 12/25/2020 12:00:00 AM EDT eCW1 ([facility]) pantoprazole 20 MG Delayed Release Oral Tablet 12/25/2020 12:00:00 AM EDT eCW1 ([facility]) pantoprazole 20 MG Delayed Release Oral Tablet 11/19/2020 12:00:00 AM EDT eCW1 ([facility]) ferrous sulfate 325 MG Oral Tablet 10/17/2020 12:00:00 AM EDT eCW1 ([facility]) ferrous sulfate 325 MG Oral Tablet 10/17/2020 12:00:00 AM EDT eCW1 ([facility])
[2021-01-04] MEDS ORDERED: LR 1,000 ML IV ONE (23:20)
[2021-01-04] MEDS ORDERED: FENTANYL 2MCG/ML ROPIVACAINE 0.2% IN 0.9% NACL 100ML IVBAG As Ordered ONE (23:25)
[2021-01-04 23:26] LABS: HEMATOCRIT 34.6 % (36.0-47.0); MEAN CORPUSCULAR HEMOGLOBIN 26.4 pg (27.0-33.0); MEAN CORPUSCULAR HGB CONC 31.8 g/dl (32.0-36.5); PLATELET COUNT, AUTOMATED 242 10^3/uL (150-450); RED BLOOD COUNT 4.17 10^6/uL (4.00-5.40); WHITE BLOOD COUNT 7.7 10^3/uL (4.0-10.0)
[2021-01-04] MEDS ORDERED: OXYTOCIN 30 UNITS IN 0.9% NaCl 500ML IV BAG (J2590) As Ordered ONE (23:26)
[2021-01-04] MEDS ORDERED: LACTATED RINGER'S 1000 ML IV STA (23:32)
[2021-01-04] MEDS ORDERED: PENICILLIN G POTASSIUM IV 5 MU in D5W MINI-BAG PLUS 100 ML IV STA (23:32)
--- NOTE | 2021-01-04 23:32 | HPEPDOC ---
Obstetrical History & Physical General Date of Admission Jan 04, 2021 at 23:01 History of Present Illness 25yo at 39w1d who was transferred to L&D from the [facility] for painful, regu lar contractions. She was admitted to the [facility] for suicidal ideation. She was found to be COVID positive last Wednesday. Chief Complaint: Contractions, term Information Provided By: Patient Age: 25 : 2 Term: 0 Care Care: Good Care Dating Final EDC: Jan 10, 2021 Antepartum Course Diagnos(e)s 1. anxiety and depression 2. suicidal ideation 3. 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 BOSS History: No pertinent history Past Medical History Medical History anxiety and depression Surgical History: Denies/None Family History Significant Family History: No pertinent family hx Social History Marital Status: Single Family situation: Spouse/partner home Psychosocial History: Anxiety, Depression, Suicidal thoughts * Smoker: non-smoker Alcohol: Denies Drugs: denies Abuse Violence Screening Have you been hit/kicked/slapp: No Have you been sexually assault: No Imunizations Tdap status: current Allergies Coded Allergies: No Known Allergies (Unverified , 01/17/20) Medications Scheduled Ferrous Sulfate (Ferrous Sulfate) 325 Mg Tablet.dr, 325 MG PO DAILY Pantoprazole Sodium (Pantoprazole Sodium) 20 Mg Tablet.dr, 20 MG PO DAILY No122/Iron/Folic Acid ( Multi Tablet) 1 Each Tablet, 1 TAB PO DAILY Scheduled PRN Acetaminophen (Acetaminophen 8 Hour) 650 Mg Tablet.er, 650 MG PO TID PRN for PAIN LEVEL 1-4 Physical Examination Physical Examination GENERAL: Alert and oriented times three. BREAST: . ABDOMEN: Gravid and non-tender to touch. FETUS: Is vertex (VTX) by sterile vaginal examination. HEART RATE: Regular rate and rhythm. LUNGS: Clear to auscultation (CTA). EXTREMITIES: No edema. No clonus. Laboratory Data 24H LABS Laboratory Tests 2 01/04/21 23:20: Serology Scanned Report Hepatitis B Testing Pertinent Laboratoy Data Blood Type: O+ RBC Antibody Screen: Negative Hepatitis B: Negative Hepatitis C: Negative Rubella: Immune Chlamydia/Gonorrhea: Negative Group B Streptococcus: Positive Glucose Tolerance Test: 128 Vaginal Examination Dilation: 1cm Effacement: 50% Station: -1 Cervical Consistency: Medium Cervical Position: Middle Assessment Heart Rate (FHR): 150 Variability: Moderate Accelerations: Positive Decelerations: None Tocometer Contractions: Yes Frequency: regular, every 1-3 min. Assessment/Plan Assessment 25-year-old (G)2 para (P)0010 at 39w1d weeks. Presents to Labor and Delivery (L&D) with painful regular ctx and vaginal spotting Plan Admit and orient. Mat Man and consent. Diet: clear liquid. Group B Streptococcus (GBS) positive, start PCN. Labs and intravenous (IV) per unit protocol. Counseled on Pitocin and induction of labor (IOL). Lactated Ringers (LR): Bolus 1000 mL, then at 125 mL/hr. Anticipate normal spontaneous delivery (). C-S as appropriate. PHILIP MAGANA MD Jan 04, 2021 23:32
[2021-01-04] MEDS ORDERED: LR 1,000 ML IV SCH (23:35)
[2021-01-04] MEDS ORDERED: TRANEXAMIC ACID INJection 1,000 MG in NS 100 ML IV PRN (23:35)
[2021-01-04] MEDS ORDERED: METHYLERGONOVINE MALEATE 0.2 MG/ML VIAL (J2210) IM PRN (23:35)
[2021-01-04] MEDS ORDERED: CARBOPROST TROMETHAMINE 250 MCG/ML AMP IM PRN (23:35)
[2021-01-04] MEDS: LR 1,000 ML IV SCH (23:48)
[2021-01-04] MEDS ORDERED: ZOLO50TA PO (23:52)
[2021-01-04] MEDS ORDERED: MUCI60TA7 PO (23:52)
[2021-01-05] VITALS (57 sets, daily range): BP systolic 91–147; BP diastolic 51–94
[2021-01-05] MEDS ORDERED: EPIDURAL COMMENT XX SCH (00:30)
[2021-01-05] MEDS ORDERED: ONDANSETRON 4MG/2ML VIAL IV PRN (00:30)
[2021-01-05] MEDS ORDERED: NALOXONE INJ 0.4MG/1ML VIAL (J2310 PER 1MG) IV PRN (00:30)
[2021-01-05] MEDS ORDERED: EPIDURAL/PCA KEYS XX PRN (00:30)
[2021-01-05] MEDS ORDERED: ePHEDrine SULFATE 25 MG/5 ML(5MG/ML) SYRINGE IV PRN (00:30)
[2021-01-05] MEDS ORDERED: diphenhydrAMINE 50MG/ML VIAL (J1200) IV PRN (00:30)
[2021-01-05] MEDS ORDERED: REFRIGERATOR IV KEYS XX PRN (00:30)
[2021-01-05] MEDS ORDERED: LACTATED RINGER'S 1000 ML IV PRN (00:30)
[2021-01-05] MEDS: FENTANYL/ROPIVACAINE/NACL BAG 100 ML EPIDURAL SCH ×2 (01:00→10:30)
[2021-01-05] MEDS: PENICILLIN G POTASSIUM IV 2.5 MU in IV 1 EA IV SCH ×3 (03:48→12:11)
[2021-01-05] MEDS ORDERED: OXYTOCIN DRIP 30 UNITS in IV 1 EA IV SCH ×2 (03:55→13:45)
--- NOTE | 2021-01-05 05:27 | IPNPDOC ---
Obstetrical Progress Note Date of Service Jan 05, 2021 Subjective Pt comfortable w/ epidural Objective Vital Signs Date Time Temp Pulse Resp B/P (MAP) Pulse Ox O2 Delivery O2 Flow Rate FiO2 01/05/21 03:11 60 18 102/59 (73) 01/05/21 02:38 98.2 Assessment Heart Rate (FHR): 160 Variability: Moderate Accelerations: Positive Decelerations: Variable Heart Rate Tracing: Category II Tocometer Contractions: Yes Frequency: regular Sterile Vaginal Examination Dilation: 8 cm Effacement (%): 90% Station: 0 Cervical Consistency: Soft Cervical Position: Middle Postion/Presentation: Cephalic presentation Assessment and Plan Age: 25 : 2 Term: 0 Status: Reassuring Group B Streptococcus: Positive Anticipate: Vaginal Delivery PHILIP MAGANA MD Jan 05, 2021 05:27
[2021-01-05] MEDS: LR 1,000 ML IV SCH (07:26)
[2021-01-05] MEDS: SERTRALINE HCL 50 MG TAB PO SCH (09:00)
--- NOTE | 2021-01-05 10:23 | IPNPDOC ---
Obstetrical Progress Note Date of Service Jan 05, 2021 Subjective pt is comfortable s/p epidural Objective Vital Signs Date Time Temp Pulse Resp B/P (MAP) Pulse Ox O2 Delivery O2 Flow Rate FiO2 01/05/21 09:23 58 114/68 (83) 01/05/21 09:20 99.3 20 Assessment Heart Rate (FHR): 160 Variability: Moderate Accelerations: Present Decelerations: Variable Heart Rate Tracing: Category II Tocometer Contractions: Yes Frequency: every 1-3 min. Sterile Vaginal Examination Dilation: 9 cm Effacement (%): 90% Station: +1 Cervical Consistency: Soft Cervical Position: Anterior Assessment and Plan Age: 25 : 2 Term: 0 Status: Reassuring Group B Streptococcus: Positive Anticipate: Vaginal Delivery PHILIP MAGANA MD Jan 05, 2021 10:23
[2021-01-05] MEDS ORDERED: diphenhydrAMINE 50MG/ML VIAL (J1200) IV ONE (10:25)
[2021-01-05] MEDS ORDERED: DOCUSATE SODIUM 100MG CAPSULE PO PRN (13:20)
[2021-01-05] MEDS ORDERED: IBUPROFEN 600MG TAB PO PRN (13:20)
[2021-01-05] MEDS ORDERED: RHOGAM 300 MCG (1500 IU) INJ (J2790) IM SCH (13:20)
[2021-01-05] MEDS ORDERED: METHYLERGONOVINE MALEATE 0.2 MG TAB PO PRN (13:20)
[2021-01-05] MEDS ORDERED: DIBUCAINE 1% OINTMENT 30GM TOP PRN (13:20)
[2021-01-05] MEDS ORDERED: MEASLES,MUMPS,RUBELLA VACCINE INJ (MMR-II) (90707) SC SCH (13:20)
--- NOTE | 2021-01-05 13:35 | DNPDOC ---
[facility] Delivery Note Delivery Note DATE OF DELIVERY: 01/05/21 PREDELIVERY DIAGNOSIS: 39 2/7 weeks' gestation and labor. POST DELIVERY DIAGNOSIS: Delivered. PROCEDURE: Spontaneous vaginal delivery NATURAL RESOURCE OFFICER: Dr. Philip Magana MD ANESTHESIA: Epidural. ESTIMATED BLOOD LOSS: 250 mL. FINDINGS: 7 pound 5 ounce female , Score 9/9 DELIVERY SUMMARY: Patient is a 25-year-old 2 now para 1011who was admitted to labor and delivery for labor. Patient was admitted to the [facility] for suicidal ideation when she started to experience painful regular contractions. She was evaluated and found to have made cervical change. She was transferred to L&D and admitted for labor. She progressed to 3cm and received an epidural. She continued to make progressed and was ruptured for thick meconium at 0520. She progressed to 8cm but stopped making change. She was started on pitocin and progressed to completely dilated and +2 station. She pushed with excellent maternal effort for 19 minutes and delivered a vigorous female . The placenta was expressed intact. She had a second degree perineal laceration that was repaired with 3.0 vicryl. She also had a small left labial tear that was repaired with a single interrupted suture for hemostasis. She also had a kori- clitoral tear that was not repaired because it was hemostatic. Sponge and sharp count correct. PHILIP MAGANA MD Jan 05, 2021 13:35
[2021-01-05] MEDS: ACETAMINOPHEN 500 MG TAB PO PRN (22:37)
[2021-01-06 02:00] VITALS: BP 103/57
[2021-01-06 05:53] VITALS: BP 109/61
[2021-01-06] MEDS: ENOXAPARIN 40MG/0.4ML SYRINGE (J1650 PER 10MG) SC SCH (08:25)
[2021-01-06] MEDS: PRENATAL VITAMINS CHEWABLE TABLET PO SCH (08:26)
[2021-01-06] MEDS: SERTRALINE HCL 50 MG TAB PO SCH (08:26)
[2021-01-06 11:17] LABS: HEMOGLOBIN 9.3 g/dl (12.0-15.5); MEAN CORPUSCULAR HEMOGLOBIN 26.4 pg (27.0-33.0); MEAN CORPUSCULAR VOLUME 85.2 fl (80.0-96.0); PLATELET COUNT, AUTOMATED 188 10^3/uL (150-450); RED BLOOD COUNT 3.52 10^6/uL (4.00-5.40); WHITE BLOOD COUNT 11.3 10^3/uL (4.0-10.0)
[2021-01-06 12:00] VITALS: BP 142/83
--- NOTE | 2021-01-06 12:02 | IPNPDOC ---
Progress Note Date of Service: Jan 06, 2021 Day#: 1 Progress Note SUBJECT: Lynnette is a who had a vaginal delivery yesterday of a living female. She was transferred from [facility] after being admitted for suicidal ideations and was discharged from [facility] 01/04/21 with the plan for CPS to clear for child safety after delivery and for patient to continue with Zoloft 50 mg daily. She reports she is . States she feels well, is able to tolerate a regular diet, is out of bed voiding with some shortness of breath. Reports bleeding has decreased. OBJECTIVE: VITAL SIGNS: See below. Alert and oriented times three. Laying on her side in bed resting. Baby in isolette sleeping. Eye contact is good. Patient able to answer questions appropriately. Respiratory rate is tachypnea and SOB noted when patient is talking. Her pulse ox remains stable. Abdomen: Fundus firm at U. Soft, NTTP. Minimal lochia. ASSESSMENT: Day 1 , Covid positive, major depression PLAN: 1. PFS and CPS to be involved before baby is discharged to home with her. 2. Continue supportive nursing care. 3. Continue support. VS, I&O, 24H, Fishbone Vital Signs/I&O Vital Signs Date Time Temp Pulse Resp B/P (MAP) Pulse Ox O2 Delivery O2 Flow Rate FiO2 01/06/21 05:53 97.7 61 18 109/61 (77) 98 Room Air I&O- Last 24 Hours up to 6 AM 01/06/21 05:59 Intake Total 3685 ml Output Total 550 ml Balance 3135 ml Laboratory Data 24H LABS Laboratory Tests 2 01/06/21 10:21: Nucleated Red Blood Cells % (auto) 0.0 CBC/BMP Laboratory Tests 01/06/21 10:21 NATIONETTE JOSE CNM Jan 06, 2021 12:02
[2021-01-06 16:11] VITALS: BP 131/73
[2021-01-06 18:31] VITALS: BP 137/80
[2021-01-06] MEDS: ACETAMINOPHEN 500 MG TAB PO PRN (20:04)
[2021-01-06 22:00] VITALS: BP 132/64
[2021-01-07 02:00] VITALS: BP 118/72
[2021-01-07 06:00] VITALS: BP 110/58
[2021-01-07] MEDS: PRENATAL VITAMINS CHEWABLE TABLET PO SCH (08:02)
[2021-01-07] MEDS: SERTRALINE HCL 50 MG TAB PO SCH (08:03)
[2021-01-07 08:47] VITALS: BP 121/65
[2021-01-07] MEDS: ENOXAPARIN 40MG/0.4ML SYRINGE (J1650 PER 10MG) SC SCH (08:49)
--- NOTE | 2021-01-07 13:03 | IPNPDOC ---
Progress Note Date of Service: Jan 07, 2021 Day#: 2 Progress Note SUBJECT: Status post uncomplicated . She has been ambulating, voiding spon taneously without issue and tolerating regular diet. Lochia decreasing/minimal. Pain is well-controlled. Denies headache, visual changes, right upper quadrant pain, shortness breath or chest pain. Plan is in place with social contact worker/CPS and psych. She is no longer considered a threat to herself or others, and she has been placed on medication with a plan for close follow-up. I have been assured that she will have her support system with her 24 hours a day, until cleared by the appropriate personnel to be alone. OBJECTIVE: VITAL SIGNS: Within normal limits, afebrile. Alert and oriented times three. Mood appears happy and positive, interacting with the baby very well Abdomen: Fundus firm at U-2. Soft, NTTP. ASSESSMENT: Status post uncomplicated spontaneous vaginal delivery. Vitals within normal limits, afebrile, hemodynamically stable with no evidence of infection. PLAN: Discharge to home today. See above Tylenol and Motrin for pain. Routine instructions/precautions reviewed. Routine PP visit in 1-2 weeks in clinic. VS, I&O, 24H, Fishbone Vital Signs/I&O Vital Signs Date Time Temp Pulse Resp B/P (MAP) Pulse Ox O2 Delivery O2 Flow Rate FiO2 01/07/21 08:47 98.4 61 14 121/65 (83) 97 Room Air ASHELY LANDRUM DO Jan 07, 2021 13:03
[2021-01-07] MEDS ORDERED: SERT50TA29 PO (16:40)
== END 2021-01-07 14:26 | disposition home or self-care (01) | DRG 560 ==
LOC: M LDI 23:01 → M OBS 01-05 14:52
PROVIDERS: ADMIT Obstetrics & Gynecology; ATTEND Obstetrics & Gynecology
PROC: 10E0XZZ Delivery of Products of Conception, External Approach (ICD-10-PCS; principal; 2021-01-05)
PROC: 10907ZC Drainage of Amniotic Fluid, Therapeutic from Products of Conception, Via Natural or Artificial Opening (ICD-10-PCS; 2021-01-05)
PROC: 0KQM0ZZ Repair Perineum Muscle, Open Approach (ICD-10-PCS; 2021-01-05)
DX: O99.344 Other mental disorders complicating childbirth (principal); F32.9 Major depressive disorder, single episode, unspecified; Z3A.39 39 weeks gestation of pregnancy; Z37.0 Single live birth; O99.52 Diseases of the respiratory system complicating childbirth; U07.1 COVID-19; O99.824 Streptococcus B carrier state complicating childbirth; O76 Abnormality in fetal heart rate and rhythm complicating labor and delivery; O77.0 Labor and delivery complicated by meconium in amniotic fluid; O70.1 Second degree perineal laceration during delivery

== ENCOUNTER 2021-06-19 02:28 | Emergency (ER) | payer OTHER ==
[~2021-06-19] VITALS: Ht 149.9 cm; Wt 63.1 kg
[~2021-06-19 02:28] MED LIST changes: +MUCI60TA7 PO; +SERT50TA29 PO; +ZOLO50TA PO
[2021-06-19 02:47] VITALS: BP 123/63
[2021-06-19] MEDS ORDERED: DEBL1TAB PO (02:54)
== END 2021-06-19 05:53 | disposition left against medical advice (07) ==
LOC: M ED 02:28
DX: Z53.21 Procedure and treatment not carried out due to patient leaving prior to being seen by health care provider (principal)

== ENCOUNTER 2021-10-06 19:36 | Emergency (ER) | payer OTHER ==
[~2021-10-06] VITALS: Ht 149.9 cm; Wt 65.0 kg
[~2021-10-06 19:36] MED LIST changes: +DEBL1TAB PO
[2021-10-06 20:41] LABS: HEMATOCRIT 40.8 % (36.0-47.0); HEMOGLOBIN 13.9 g/dl (12.0-15.5); MEAN CORPUSCULAR HEMOGLOBIN 28.3 pg (27.0-33.0); MEAN CORPUSCULAR HGB CONC 34.1 g/dl (32.0-36.5); MEAN CORPUSCULAR VOLUME 83.1 fl (80.0-96.0); PLATELET COUNT, AUTOMATED 350 10^3/uL (150-450); RED BLOOD COUNT 4.91 10^6/uL (4.00-5.40); WHITE BLOOD COUNT 7.3 10^3/uL (4.0-10.0)
[2021-10-06 21:10] LABS: HCG, SERUM QUALITATIVE NEGATIVE (NEGATIVE)
[2021-10-06] MEDS ORDERED: HOME MED LIST COMPLETE! XX SCH (21:15)
[2021-10-06 21:17] LABS: AMPHETAMINES LEVEL URINE POSITIVE (NEGATIVE); BARBITURATES URINE NEGATIVE (NEGATIVE); BENZODIAZEPINES URINE NEGATIVE (NEGATIVE); CANNABINOIDS URINE NEGATIVE (NEGATIVE); COCAINE METABOLITE URINE NEGATIVE (NEGATIVE); METHADONE URINE NEGATIVE (NEGATIVE); OPIATES URINE NEGATIVE (NEGATIVE); PHENCYCLIDINE URINE NEGATIVE (NEGATIVE)
[2021-10-06 21:29] LABS: BLOOD UREA NITROGEN 7 MG/DL (7-18); CHLORIDE LEVEL 113 MEQ/L (98-107); CREATININE FOR GFR 0.91 MG/DL (0.55-1.30); GLOMERULAR FILTRATION RATE > 60.0 (>60); GLUCOSE, FASTING 96 MG/DL (70-100); POTASSIUM SERUM 3.7 MEQ/L (3.5-5.1); SODIUM LEVEL 141 MEQ/L (136-145)
[2021-10-06 21:30] LABS: ACETAMINOPHEN LEVEL < 2.0 UG/ML (10.0-30.0); ALT/SGPT 14 IU/L (0-32); BILIRUBIN,DIRECT 0.2 MG/DL (0.0-0.2); BILIRUBIN,TOTAL 0.9 MG/DL (0.2-1.0); CALCIUM LEVEL 9.8 MG/DL (8.5-10.1); CARBON DIOXIDE LEVEL 18 mmol/L (20-29); ETHYL ALCOHOL (ETHANOL) < 0.003 % (0.000-0.010); SALICYLATE LEVEL < 1.7 MG/DL (5.0-30.0); TOTAL PROTEIN 7.4 GM/DL (6.4-8.2)
[2021-10-07 05:57] VITALS: BP 128/88
== END 2021-10-07 06:02 | disposition home or self-care (01) ==
LOC: M ED 19:36
DX: F41.0 Panic disorder [episodic paroxysmal anxiety] (principal); F43.0 Acute stress reaction; Z79.899 Other long term (current) drug therapy